=== PATIENT | female | born 1945 | race Caucasian/White ===

== ENCOUNTER 2023-11-02 10:42 | Emergency (ER) | payer MEDICARE, MEDICAID, SELFPAY ==
[2023-11-02 10:43] VITALS: BP 161/108; PULSE 91; RESP 14; TEMP 36.3; O2SAT 100; BMI 22.4
--- NOTE | 2023-11-02 11:26 | VDLE_ITS ---
Reason For Study: Right leg pain RIGHT LEFT CFV is compressible, spontaneous, phasic, CFV is compressible, spontaneous, phasic, competent and demonstrates normal competent, and demonstrates normal augmentation. augmentation. FV is compressible, spontaneous, phasic, competent and demonstrates normal augmentation. POP V is compressible, spontaneous, phasic, competent and demonstrates normal augmentation. T/P Trunk is compressible. PTV is compressible. RT PerV is compressible. Acute superficial vein thrombosis is noted in the GSV at mid-distal calf. It is NONCPMPRESSIBLE and dilated. Thrombus filled varicose vein is noted throughout leg and is 3.25 cm from the junction with CFV. It is NONCOMPRESSIBLE and dilated. Procedure This is a venous duplex using B-mode, color flow and spectral Doppler. Exam performed portable in ED. A preliminary report was called and/or faxed to [facility]. VL/Venous Duplex US, Unilateral Interpretation Summary Acute superficial vein thrombosis is noted in the right mid calf great saphenou s vein and thigh/calf varicose veins. Deep veins of the right lower extremity are patent and compressible segmentally . There is no evidence of right lower extremity deep vein thrombosis. Ordering Physician: Delisa Serrato Referring Physician: Paulie Rodriguez Performed By: Janna Cotto RVT
--- NOTE | 2023-11-02 11:43 | EX.ED.DYSGE1 ---
HPI <CECI Kennedy - Last Filed: 11/02/23 13:02> History of Present Illness Chief Complaint: Lower Extremity Injury Narrative Narrative: Pain presenting today due to concerns for a blood clot in her right leg. She reports that last week she began having pain medial aspect of her right calf and right distal thigh. A few days ago, she noticed swelling and redness to the area. She denies any history of blood clots, recent surgery/procedures/travel/immobilization. She is not on any blood thinners. She denies any injury to her leg, fevers, chills, chest pain, and shortness of breath. PFSH <CECI Kennedy - Last Filed: 11/02/23 13:02> [facility] Home Medications ferrous fumarate 55 mg (18 mg iron) tablet,extended release (iron ER) 65 mg PO DAILY 09/24/13 [History Last Taken 09/24/13 08:00] levothyroxine 25 mcg tablet 50 mcg PO DAILY 09/24/13 [History Last Taken 09/24/13 04:00] multivitamin,dp-uuev-tdlikqpl 27 mg-0.4 mg tablet (Therems-M) 1 tab PO DAILY 09/24/13 [History Last Taken 09/24/13] potassium chloride 20 mEq tablet,extended release(part/cryst) (Klor-Con M) 10 meq PO DAILY 09/24/13 [History Last Taken 09/24/13 08:00] amlodipine 2.5 mg tablet 2.5 mg PO DAILY 02/15/16 [History Last Taken Unknown] anastrozole 1 mg tablet 1 mg PO DAILY 02/15/16 [History Last Taken Unknown] Allergy/AdvReac Type Severity Reaction Status Date / Time doxycycline Allergy Swelling Verified 11/02/23 11:31 Social History Smoking Status: Never smoker ROS <CECI Kennedy - Last Filed: 11/02/23 13:02> ROS ED Constitutional Constitutional ED: Denies chills or fever(s) Cardiovascular Cardiovascular: Denies chest pain or palpitations Respiratory/Chest Respiratory/Chest: Denies cough or dyspnea Gastrointestinal Gastrointestinal: Denies abdominal pain, nausea or vomiting Musculoskeletal Musculoskeletal: Reports myalgias Integumentary Denies rash Neurologic Neurologic: Denies weakness EXAM <CECI Kennedy - Last Filed: 11/02/23 13:02> Physical Exam Const Vital Signs: 11/02/23 10:43 11/02/23 12:40 Temperature 97.3 F L 97.2 F L Temperature Source Temporal Pulse Rate 91 89 Respiratory Rate 14 16 Blood Pressure 161/108 H 157/90 H Blood Pressure Mean 125 112 Pulse Ox 100 98 Oxygen Delivery Method Room Air Positive well nourished, well developed and no apparent distress General Appearance ED: well developed HEENT Reports normocephalic and head/scalp atraumatic Mouth ED: Yes moist mucous membranes normal Eyes PERRL and EOMs intact bilaterally Neck full ROM and supple Chest Wall inspection of chest normal Resp normal respiratory effort and clear to auscultation bilaterally Cardio regular rate and regular rhythm GI soft to palpation, non-tender, non-distended and no masses Back/Spine normal ROM and normal to inspection Extremity full ROM Extremity Narrative: Right DP pulse 2+, good capillary refill, sensation intact. There is a varicose vein over the medial aspect of the mid right calf and distal medial thigh with slight erythema, area is tender to touch. Neuro oriented x3, CN's II-XII intact bilaterally, moves all extremities, no focal motor deficits and no sensory deficits noted Sensorium / Orientation: awake and alert Psych mental status grossly normal and thought process normal Skin no rashes or lesions noted and no wounds <Dr. Darnell Mathias DO - Last Filed: 11/02/23 12:39> Physical Exam Const Vital Signs: 11/02/23 10:43 11/02/23 12:40 Temperature 97.3 F L 97.2 F L Temperature Source Temporal Pulse Rate 91 89 Respiratory Rate 14 16 Blood Pressure 161/108 H 157/90 H Blood Pressure Mean 125 112 Pulse Ox 100 98 Oxygen Delivery Method Room Air MDM <CECI Kennedy - Last Filed: 11/02/23 13:02> [facility] Narrative Medical decision making narrative: Patient presenting today with concerns for DVT. She has a varicose vein to the medial aspect of her right calf and right distal thigh that has become slightly erythemic and painful to touch. Venous duplex ultrasound was obtained and shows superficial venous thrombosis. No DVT. Warm compresses discussed. I encouraged her to call her PCP today to make a follow-up appointment for the next 3 to 7 days. She has been given return instructions and will be discharged home in stable condition. She is comfortable with plan. <Dr. Darnell Mathias, DO - Last Filed: 11/02/23 12:39> [facility] Treatment and Re-Evaluation :: I have personally performed a face to face assessment of the patient and have reviewed the BYRON Note. I performed a substantive portion of the visit including all aspects of the following. My wilhelm findings include: History: Patient presents with redness and swelling to her right lower extremity that has been getting worse over the past few days. Patient states she was doing some walking prior to this starting. Patient states that she noted some redness in her right calf on the medial aspect. Patient states this has spread up her leg and into her thigh. Patient denies any fevers or chills. Patient denies any chest pain or shortness of breath. Patient denies any nausea or vomiting. Patient denies any trauma or injury. Exam: Vital signs are stable. Patient is afebrile. Patient is in no acute distress. Skin is warm and dry. There is erythema and mild tenderness over the medial aspect of the right lower leg and thigh. There is a varicose vein over this area. There are no palpable cords noted. There is no posterior calf tenderness. There is no edema. Pedal pulses are equal bilaterally. Sensation was intact to light touch in all digits. Capillary refill was less than 2 seconds in all digits. Medical Decision Making: Differential diagnosis include superficial thrombophlebitis, lymphangitis, and DVT. Venous duplex of the right lower extremity will be obtained to assess for superficial and deep vein thrombosis. Venous duplex was obtained. There is superficial thrombosis in the greater saphenous vein and common femoral vein. There is no deep vein thrombosis. The patient was advised of her findings. Patient was instructed use warm compresses. Patient was instructed to follow-up with her primary care physician in 5 to 7 days. Patient understood and was agreeable with the plan. All questions were answered. Discharge Plan Triage Chief Complaint: Lower Extremity Injury ED Midlevel Provider: Delisa Serrato ED Provider: Darnell Mathias Dx/Rx/DC Orders Clinical Impression: Superficial thrombophlebitis of leg Instructions: ED Thrombophlebitis, Superficial Prescriptions: No Action levothyroxine 25 MCG tablet 50 mcg PO DAILY Patient Comments: thyroid potassium chloride [Klor-Con M20] 20 MEQ tablet 10 meq PO DAILY Patient Comments: supplement ferrous fumarate [iron] 55 MG tablet extended release 65 mg PO DAILY Patient Comments: iron supplement multivitamin,[id number]-[id number] [Therems-M] 1 TABLET tablet 1 tab PO DAILY Patient Comments: supplement anastrozole 1 MG tablet 1 mg PO DAILY amlodipine 2.5 MG tablet 2.5 mg PO DAILY Primary Care Provider: Paulie Rodriguez Referrals: Paulie Rodriguez MD [Primary Care Provider] - 3-5 Days Activity Restrictions/Additional Instructions: Please follow-up with your PCP and return for any worsening of your symptoms. Use warm compresses to the area several times today. Disposition Disposition: Home, Self Care Discharge Date/Time: 11/02/23 12:41
[2023-11-02 12:40] VITALS: BP 157/90; PULSE 89; RESP 16; TEMP 36.2; O2SAT 98
--- OUTSIDE RECORDS SUMMARY | 2023-11-02 20:11 | XMS RPT_ITS | CCD ---
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 Automatic Name Role Phone JESSE ROJAS Unavailable Unavailable Michael FOX, Evy Brunner Primary Care Provider Michael FOX, Evy Brunner Primary Care Provider Evy Rodriguez MD Primary Care Provider Evy Rodriguez MD Primary Care Provider ALEKSANDAR GAN Attending Unavailable ALEKSANDAR GAN Referring Unavailable EVY RODRIGUEZ Primary Care Unavailable EVY RODRIGUEZ Primary Care Unavailable EVY RODRIGUEZ Attending Unavailable EVY RODRIGUEZ Primary Care Unavailable EVY RODRIGUEZ Referring Unavailable ALEKSANDAR GAN Referring Unavailable EVY RODRIGUEZ Primary Care Unavailable EVY RODRIGUEZ Primary Care Unavailable EVY RODRIGUEZ Attending Unavailable ALEKSANDAR GAN Referring Unavailable EVY RODRIGUEZ Primary Care Unavailable SELENA VIGIL Attending Unavailable SELENA VIGIL Referring Unavailable EVY RODRIGUEZ Primary Care Unavailable ANGÉLICA HINOJOSA Attending Unavailable EVY RODRIGUEZ Primary Care Unavailable ANGÉLICA HINOJOSA Attending Unavailable EVY RODRIGUEZ Primary Care Unavailable Allergies Allergy Classification Reported Allergen(s) Allergy Type Date of Onset Reaction(s) Facility (20 sources) doxycycline; Translations: [DOXYCYCLINE] Drug Allergy 5 Swelling [facility] Repository (20 sources) Seasonal allergy; Translations: [SEASONAL ALLERGIES] Propensity to adverse reactions (disorder) 1 Unknown [facility] Repository Medications Current Medications Medication Drug Class(es) Dates Sig (Normalized) Sig (Original) amLODIPine 2.5 mg oral tablet (20 sources) Dihydropyridine Calcium Channel Reece Start: 03-03-2021 End: 02-27-2024 take 1 tablet by mouth once daily amLODIPine (NORVASC) 2.5 mg tablet Indications: Essential hypertension Take 1 tablet by mouth once daily. 90 tablet 3 02/27/2023 02/27/2024 Active Completed/Discontinued Medications Medication Drug Class(es) Dates Sig (Normalized) Sig (Original) acetaminophen 325 mg oral tablet (20 sources) take 2 tablets by mouth every six hours as needed acetaminophen (TYLENOL) 325 mg tablet Take 650 mg by mouth every 6 hours as needed. 0 Active Problems Active Problems Problem Classification Problem Date Documented Date Episodic/Chronic Blindness and vision defects (2 sources) Presbyopia; Translations: [Presbyopia] Episodic Cataract (2 sources) Bilateral senile combined form cataracts of eyes; Translations: [Combined forms of age-related cataract, bilateral] Chronic Chronic kidney disease (3 sources) Chronic kidney disease stage 2; Translations: [Chronic kidney disease, stage 2 (mild)] Onset: 08-30-2023 08-30-2023 Chronic Coagulation and hemorrhagic disorders (1 source) Thrombocytopenic disorder; Translations: [Thrombocytopenia, unspecified] Chronic Disorders of lipid metabolism (20 sources) Hyperlipidemia; Translations: [Hyperlipidemia, unspecified] Onset: 05-31-2011 05-31-2011 Chronic Essential hypertension (20 sources) Essential hypertension; Translations: [Essential (primary) hypertension] Onset: 12-15-2016 Chronic Inflammation; infection of eye (except that caused by tuberculosis or sexually transmitteddisease) (1 source) Blepharitis of upper and lower eyelids of bilateral eyes; Translations: [Unspecified blepharitis right eye, upper and lower eyelids] Episodic Other eye disorders (2 sources) Bilateral posterior vitreous detachment; Translations: [Vitreous degeneration, bilateral] Chronic Other eye disorders (2 sources) Chorioretinal scar of left eye; Translations: [Unspecified chorioretinal scars, left eye] Chronic Other skin disorders (2 sources) Epidermoid cyst; Translations: [Epidermal cyst] 10-17-2023 Episodic Other upper respiratory disease (20 sources) Seasonal allergy; Translations: [Other seasonal allergic rhinitis] 05-31-2011 Chronic Residual codes; unclassified (1 source) Pain; Translations: [Pain, unspecified] Episodic Thyroid disorders (20 sources) Hypothyroidism; Translations: [Hypothyroidism, unspecified] Onset: 04-04-2011 Chronic Past or Other Problems Problem Classification Problem Date Documented Da te Episodic/Chronic Cancer of breast (20 sources) History of malignant neoplasm of breast; Translations: [Personal history of malignant neoplasm of breast] Onset: 09-20-2011 Episodic Fluid and electrolyte disorders (20 sources) Hypokalemia; Translations: [Hypokalemia] Onset: 05-20-2014 Episodic Other gastrointestinal disorders (20 sources) Dysphagia; Translations: [Dysphagia, unspecified] Onset: 01-07-2016 01-07-2016 Episodic Other non-traumatic joint disorders (1 source) Pain in left knee; Translations: [Pain in left knee] Onset: 06-12-2017 Episodic Other screening for suspected conditions (not mental disorders or infectious disease) (20 sources) Patient encounter status; Translations: [Encounter for screening mammogram for malignant neoplasm of breast] Onset: 09-07-2022 Episodic Results Test Name Value Interpretation Reference Range Facil ity Vital Signs Date Time Vital Sign Value Performing Clinician Jc baig 10-31-2023 08:56-0400 Body weight 60.96 kg Angélica Hinojosa APRN.CNM Work Phone: [facility] 10-31-2023 08:56-0400 Diastolic blood pressure 74 mm[Hg] Angélica Hinojosa APRN.CNM Work Phone: [facility] 10-31-2023 08:56-0400 Systolic blood pressure 126 mm[Hg] Angélica Hinojosa APRN.CNM Work Phone: [facility] 10-11-2023 09:48-0500 Body weight 61.69 kg Angélica Hinojosa APRN.CNM Work Phone: [facility] 10-11-2023 09:48-0500 Diastolic blood pressure 90 mm[Hg] Angélica Hinojosa APRN.CNM Work Phone: [facility] 10-11-2023 09:48-0500 Systolic blood pressure 140 mm[Hg] Angélica Hinojosa APRN.CNM Work Phone: [facility] 09-29-2023 08:38-0500 Diastolic blood pressure 96 mm[Hg] Aleksandar Gna APRN.SCRAP BREAKER Work Phone: [facility] 09-29-2023 08:38-0500 Heart rate 67 /min Aleksandar Gan PAINTING MACHINE OPERATOR.SCRAP BREAKER Work Phone: [facility] 09-29-2023 08:38-0500 Systolic blood pressure 155 mm[Hg] Aleksandar Gan PAINTING MACHINE OPERATOR.SCRAP BREAKER Work Phone: [facility] 09-29-2023 07:58-0500 Body height 160 cm Castalia Gan PAINTING MACHINE OPERATOR.SCRAP BREAKER Work Phone: [facility] 09-29-2023 07:58-0500 Body temperature 98.49 [degF] Aleksandar Mariaenter PAINTING MACHINE OPERATOR.SCRAP BREAKER Work Phone: [facility] 09-29-2023 07:58-0500 Body weight 62.14 kg Aleksandar Gan PAINTING MACHINE OPERATOR.SCRAP BREAKER Work Phone: [facility] 09-29-2023 07:58-0500 SaO2% (BldA) [Mass fraction] 99 % Aleksandar Mariaenter PAINTING MACHINE OPERATOR.SCRAP BREAKER Work Phone: [facility] 02-27-2023 10:09-0400 Diastolic blood pressure 86 mm[Hg] Evy Rodriguez MD Work Phone: [facility] 02-27-2023 10:09-0400 Systolic blood pressure 132 mm[Hg] Evy Rodriguez MD Work Phone: [facility] 02-27-2023 09:41-0400 Body height 160 cm Evy Rodriguez MD Work Phone: [facility] 02-27-2023 09:41-0400 Body weight 59.33 kg Evy Rodriguez MD Work Phone: [facility] 02-27-2023 09:41-0400 Heart rate 65 /min Evy Rodriguez MD Work Phone: [facility] 02-27-2023 09:41-0400 SaO2% (BldA) [Mass fraction] 98 % Evy Rodriguez MD Work Phone: [facility] 09-28-2022 08:18-0500 Body height 160 cm Aleksandar Mariaenter PAINTING MACHINE OPERATOR.SCRAP BREAKER Work Phone: [facility] 09-28-2022 08:18-0500 Body temperature 98.29 [degF] Castalia Gan PAINTING MACHINE OPERATOR.SCRAP BREAKER Work Phone: [facility] 09-28-2022 08:18-0500 Body weight 62.37 kg Aleksandar Mariaenter PAINTING MACHINE OPERATOR.SCRAP BREAKER Work Phone: [facility] 09-28-2022 08:18-0500 Diastolic blood pressure 81 mm[Hg] Aleksandar Gan PAINTING MACHINE OPERATOR.SCRAP BREAKER Work Phone: [facility] 09-28-2022 08:18-0500 Heart rate 64 /min Aleksandar Mariaenter PAINTING MACHINE OPERATOR.SCRAP BREAKER Work Phone: [facility] 09-28-2022 08:18-0500 Systolic blood pressure 124 mm[Hg] Aleksandar Mariaenter PAINTING MACHINE OPERATOR.SCRAP BREAKER Work Phone: [facility] 09-07-2022 10:01-0500 Body height 160 cm Evy Rodriguez MD Work Phone: [facility] 09-07-2022 10:01-0500 Body weight 61.69 kg Evy Rodriguez MD Work Phone: [facility] 09-07-2022 10:01-0500 Diastolic blood pressure 88 mm[Hg] Evy Rodriguez MD Work Phone: [facility] 09-07-2022 10:01-0500 Heart rate 70 /min Evy Rodriguez MD Work Phone: [facility] 09-07-2022 10:01-0500 SaO2% (BldA) [Mass fraction] 99 % Evy Rodriguez MD Work Phone: [facility] 09-07-2022 10:01-0500 Systolic blood pressure 134 mm[Hg] Evy Rodriguez MD Work Phone: [facility] 06-15-2022 09:34-0400 Body temperature 98.2 [degF] Niki Costa PAINTING MACHINE OPERATOR.SCRAP BREAKER Work Phone: [facility] 06-15-2022 09:34-0400 Body weight 62.6 kg Niki Costa APRN.SCRAP BREAKER Work Phone: [facility] 06-15-2022 09:34-0400 Diastolic blood pressure 80 mm[Hg] Niki Costa APRN.SCRAP BREAKER Work Phone: [facility] 06-15-2022 09:34-0400 Heart rate 80 /min Niki Costa APRN.SCRAP BREAKER Work Phone: [facility] 06-15-2022 09:34-0400 Respiratory rate 16 /min Niki Costa APRN.SCRAP BREAKER Work Phone: [facility] 06-15-2022 09:34-0400 SaO2% (BldA) [Mass fraction] 96 % Niki Costa APRN.SCRAP BREAKER Work Phone: [facility] 06-15-2022 09:34-0400 Systolic blood pressure 130 mm[Hg] Niki Costa APRN.SCRAP BREAKER Work Phone: [facility] 03-03-2022 09:39-0400 Body weight 62.6 kg Evy Rodriguez MD Work Phone: [facility] 03-03-2022 09:39-0400 Diastolic blood pressure 82 mm[Hg] Evy Rodriguez MD Work Phone: [facility] 03-03-2022 09:39-0400 Heart rate 64 /min Evy Rodriguez MD Work Phone: [facility] 03-03-2022 09:39-0400 Systolic blood pressure 138 mm[Hg] Evy Rodriguez MD Work Phone: [facility] Encounters Encounter Date Encounter Type Care Provider Facility Start: 10-31-2023 End: 10-31-2023 ambulatory [facility] Facility:[facility] Start: 10-31-2023 End: 10-31-2023 Patient encounter procedure Angélica Hinojosa APRN.CNM Work Phone: OB/Gynecology Procedures Date Procedure Procedure Detail Performing Clinician Start: 08-24-2023 Lipid 1996 panel - S kenisha or Plasma Aleksandar Gan PAINTING MACHINE OPERATOR.SCRAP BREAKER Work Phone: Start: 04-17-2023 Screening digital br east tomosynthesis bi Aleksandar Gan PAINTING MACHINE OPERATOR.SCRAP BREAKER Work Phone: Start: 09-01-2022 Lipid 1996 panel - S kenisha or Plasma Screen [facility] Start: 04-14-2022 ALO SCREENING W ILAN Da griffin MariaGan PAINTING MACHINE OPERATOR.SCRAP BREAKER Work Phone: Start: 04-14-2022 Mammography Screen Wst [facility] Start: 03-03-2022 Adult depression scr eening assessment Evy Rodriguez MD Work Phone: Start: 04-12-2021 Mammography Evy Griffith MD Work Phone: Start: 06-04-2012 Colonoscopy Evy Griffith MD Work Phone: Plan of Treatment Date Care Activity Detail Author Start: 08-24-2028 Lipid panel Lipid Screening [facility] Start: 09-01-2027 Lipid 1996 panel - S kenisha or Plasma Lipid Screening [facility] Start: 09-01-2027 LIPID SCREEN LIPID SCREEN [facility] Start: 08-27-2026 LIPID SCREEN LIPID SCREEN [facility] Start: 08-24-2026 Diabetes Screening Diabetes Screenin [facility] Start: 09-19-2025 COLOGUARD (FIT-DNA) COLOGUARD (FIT-D NA) [facility] Start: 09-19-2025 COLORECTAL CANCER SCREENING COLORECTAL CANCER SCREENING [facility] Start: 09-19-2025 Screening for malign ant neoplasm of colon [facility] Start: 09-01-2025 DIABETES SCREEN DIABETES SCREEN [facility] Start: 09-01-2025 Diabetes Screening Diabetes Screenin g [facility] Start: 10-30-2024 BP Controlled (<130/80) BP Controlle d (<130/80) [facility] Start: 08-30-2024 Annual PCP Team Pick Pulling Machine Operator shiva Disease Visit Annual PCP Team Chronic Disease Visit [facility] Start: 08-30-2024 RSV Vaccine (1 - 1-d ose 60+ series) RSV Vaccine (1 - 1-dose 60+ series) [facility] Immunizations Immunization Date Immunization Notes Care Provider Fa andre 07-24-2018 influenza virus vacc ine, unspecified formulation Screen [facility] 06-09-2016 influenza, high dose seasonal, preservative-free Evy Rodriguez MD Work Phone: [facility] 05-27-2015 influenza, high dose seasonal, preservative-free Evy Rodriguez MD Work Phone: [facility] 05-27-2015 pneumococcal conjuga te vaccine, 13 valent Evy Rodriguez MD Work Phone: [facility] 05-20-2014 influenza, high dose seasonal, preservative-free Evy Rodriguez MD Work Phone: [facility] Work Phone: 05-18-2013 influenza virus vacc ine, unspecified formulation Evy Rodriguez MD Work Phone: [facility] Work Phone: 05-18-2013 pneumococcal polysaccharide vaccine, 23 valent Evy Rodriguez MD Work Phone: [facility] Work Phone: 05-23-2012 influenza virus vacc ine, unspecified formulation Evy Rodriguez MD Work Phone: [facility] 04-21-2007 tetanus and diphther ia toxoids, adsorbed, preservative free, for adult use (2 Lf of tetanus toxoid and 2 Lf of diphtheria toxoid) Evy Rodriguez MD Work Phone: [facility] Work Phone: Payers Date Payer Category Payer Medicaid [employer] [id number] 2018-Present [phone] [address] [place] [address] Medicaid [id number] 2018 Medicare [id number] 2018 Medicare [employer] [id number] 2018-Present [phone] [address] [place] [address] Medicare [id number] 2018 Medicare [id number] Social History Date Type Detail Facility Start: 03-11-2011 End: 06-15-2022 Tobacco smoking status NHIS Never smoked tobacco [facility] Work Phone: Start: 03-11-2011 End: 06-15-2022 Tobacco use and exposure Smokeless tobacco non-user [facility] Work Phone: Start: 03-03-2022 End: 10-31-2023 Alcohol intake Current drinker of alcohol (finding) [facility] Start: 04-18-2017 History SDOH Alcohol Comment rare [facility] Start: 04-02-2013 End: 06-15-2022 Tobacco Comment smoked for many years. [facility] Start: 1945 Sex Assigned At Not on file [facility] Start: 02-21-2022 End: 06-15-2022 Exposure to SARS-CoV-2 (event) Not sure [facility] Start: 02-27-2023 End: 08-30-2023 History of Social function [facility] Work Phone: Start: 02-27-2023 End: 08-30-2023 Tobacco use panel [facility] Work Phone: Adult Depression Screening Assessment 0 [facility] Work Phone: Medical Equipment Procedure Code Equipment Code Equipment Origin al Text Equipment Identifier Dates Roberto Bn Endur Sst 40gm Med Vsc - [id number] Start: 05-02-2011 Comp Fem 2.5 Lt Kn Ps Pfc Sig - [id number] Start: 05-02-2011 Comp Tibtry 2.5 Kn Roberto Mdlr - [id number] Start: 05-02-2011 Ins Tib 2.5 10mm Stab Xlnkd - [id number] Start: 05-02-2011 Dome Pat 35mm Pf c Sig Sm Kn - [id number] Start: 05-02-2011 Goals Date Patient Goal Desired Activity /State Personal health goal Clinical Notes 12-15-2016 to 10-31-2023 Angélica Hinojosa APRN.CHRISTIANO - 10/31/2023 8:54 AM Angélica Castro APRN.CNM - 10/17/2023 11:00 PM Angélica Campo APRN.CNM - 10/11/2023 9:42 AM Aleksandar Booth APRN.SCRAP BREAKER - 09/29/2023 7:50 AM EST Note Date & Type Note Facility 10-31-2023 Note HNO ID: [id number] Author: ANGÉLICA HINOJOSA APRN.CNM Service: ? Author Type: Logistics Team Lead Type: Progress Notes Filed: 10/31/2023 09:32 Note Text: Tenzin Lockhart is a 77 year old female who presents for problem visit follow up labial cyst HPI: Patient presents today for follow up labial cyst IANDD. Denies any concerns. Healed without incidence and does not feel it any further. 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 Comments: Sexual Activity: Never; No partner data on record Contraception: Tubal Ligation PAST MEDICAL HISTORY Diagnosis Date Anemia Anxiety AVN (avascular necrosis of bone) (HCC) 2010 left knee, femur Breast cancer (HCC) Esophageal stricture S/P dilatation Hyperlipidemia Hypertension Hypothyroidism Prolapsed uterus Seasonal allergies PAST SURGICAL HISTORY Procedure Laterality Date ARTHRP KNE CONDYLEANDPLATU MEDIALANDLAT COMPARTMENTS 04/2011 left osteonecrosis BX BREAST PERC VACUUM/ROTN 09/08/11 Right x 2 COLONOSCOPY 06/04/12 repeat due 2021 ESOPHAGOGASTRODUODENOSCOPY TRANSORAL DIAGNOSTIC 01/07/16 EGD ESOPHAGOGASTRODUODENOSCOPY TRANSORAL DIAGNOSTIC 02/16/2016 EGD-MAC ([facility]) HYSTERECTOMY HX 09/27/12 FAUSTO/BSO, prolapse LIG/TRNSXJ FLP TUBE ABDL/VAG APPR UNI/BI 1977 Tubal ligation MASTECTOMY, PARTIAL 10/19/11 SLNBx - Negative PAST SURGICAL HISTORY OF removal of all upper teeth, has plate FAMILY HISTORY Problem Relation Age of Onset Thyroid Mother other (brain tumor) Mother benign Cancer Father stomach Diabetes Maternal Grandmother Thyroid Brother Thyroid Sister hyperthyroidism Cancer Other niece-breast Social History Tobacco Use Smoking status: Never Smokeless tobacco: Never Tobacco comments: smoked for many years. Vaping Use Vaping Use: Never used Substance Use Topics Alcohol use: Yes Comment: rare Drug use: No Current Outpatient Medications Medication Sig levothyroxine (SYNTHROID) 75 mcg tablet Take 1 tablet by mouth once daily. Take on empty stomach. For Thyroid amLODIPine (NORVASC) 2.5 mg tablet Take 1 tablet by mouth once daily. ascorbic acid, vitamin C, (VITAMIN C) 500 mg tablet Take 500 mg by mouth once daily. Cholecalciferol, Vitamin D3, 25 mcg (1,000 unit) cap Take 2,000 Units by mouth once daily. FOLIC ACID/MULTIVIT-MIN/LUTEIN (CENTRUM SILVER ORAL) Take 1 tablet by mouth once daily. Cyanocobalamin 1,000 mcg subl Dissolve 1,000 mcg under the tongue once daily. CALCIUM CITRATE/VITAMIN D2 (CALCIUM CITRATE WITH D ORAL) Take 500 mg by mouth once daily. acetaminophen (TYLENOL) 325 mg tablet Take 650 mg by mouth every 6 hours as needed. ferrous sulfate 325 mg (65 mg iron) tablet Take 325 mg by mouth daily with breakfast. No current facility-administered medications for this visit. Allergies As of Date: 10/31/2023 Allergen Noted Reaction DOXYCYCLINE 07/13/2015 Swelling SEASONAL ALLERGIES 05/02/2011 Unknown Fully Assessed 10/31/2023 REVIEW OF SYSTEMS Abdomen: No bloating, early satiety, indigestion, or increased flatulence. No abdominal pain, nausea, vomiting, diarrhea, or constipation. Bladder: No dysuria, gross hematuria, urinary frequency, urinary urgency, or incontinence. Expanded ROS: N/A Allergies and current medication updated:Yes EXAM: BP 126/74 Wt 134 lb 6.4 oz (61.0kg) GENERAL: pleasant, female in no apparent distress HEENT: Normocephalic and atraumatic NECK: Supple and full range of motion CHEST: Normal inspiratory effort PELVIC: external genitalia normal, normal Bartholin's glands, urethra, [place]'s glands, no vulvar lesions, no cervical lesions, good vaginal support, physiologic discharge present, normal appearing perineal body and perianal region NEURO: alert and oriented x3,exam grossly non-focal EXTREMITIES: normal ASSESSMENT AND PLAN: 1. Epidermoid cyst - ICD9: 706.2, ICD10: L72.0 -Resolution of cyst and no further concerns. Follow up for annual exam is desires. PCP for care. Angélica Hinojosa APRN.ANTIONETTE [facility] 10-31-2023 History of Present illness Narrative Tenzin Lockhart is a 77 year old female who presents for problem visit follow up labial cyst HPI: Patient presents today for follow up labial cyst I&D. Denies any concerns. Healed without incidence and does not feel it any further. 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 Comments: Sexual Activity: Never; No partner data on record Contraception: Tubal Ligation PAST MEDICAL HISTORY Diagnosis Date Anemia Anxiety AVN (avascular necrosis of bone) (HCC) 2010 left knee, femur Breast cancer (HCC) Esophageal stricture S/P dilatation Hyperlipidemia Hypertension Hypothyroidism Prolapsed uterus Seasonal allergies PAST SURGICAL HISTORY Procedure Laterality Date ARTHRP KNE CONDYLE&PLATU MEDIAL&LAT COMPARTMENTS 04/2011 left osteonecrosis BX BREAST PERC VACUUM/ROTN 09/08/11 Right x 2 COLONOSCOPY 06/04/12 repeat due 2021 ESOPHAGOGASTRODUODENOSCOPY TRANSORAL DIAGNOSTIC 01/07/16 EGD ESOPHAGOGASTRODUODENOSCOPY TRANSORAL DIAGNOSTIC 02/16/2016 EGD-MAC ([facility]) HYSTERECTOMY HX 09/27/12 FAUSTO/BSO, prolapse LIG/TRNSXJ FLP TUBE ABDL/VAG APPR UNI/1977 Tubal ligation MASTECTOMY, PARTIAL 10/19/11 SLNBx - Negative PAST SURGICAL HISTORY OF removal of all upper teeth, has plate FAMILY HISTORY Problem Relation Age of Onset Thyroid Mother other (brain tumor) Mother benign Cancer Father stomach Diabetes Maternal Grandmother Thyroid Brother Thyroid Sister hyperthyroidism Cancer Other niece-breast Social History Tobacco Use Smoking status: Never Smokeless tobacco: Never Tobacco comments: smoked for many years. Vaping Use Vaping Use: Never used Substance Use Topics Alcohol use: Yes Comment: rare Drug use: No Current Outpatient Medications Medication Sig levothyroxine (SYNTHROID) 75 mcg tablet Take 1 tablet by mouth once daily. Take on empty stomach. For Thyroid amLODIPine (NORVASC) 2.5 mg tablet Take 1 tablet by mouth once daily. ascorbic acid, vitamin C, (VITAMIN C) 500 mg tablet Take 500 mg by mouth once daily. Cholecalciferol, Vitamin D3, 25 mcg (1,000 unit) cap Take 2,000 Units by mouth once daily. FOLIC ACID/MULTIVIT-MIN/LUTEIN (CENTRUM SILVER ORAL) Take 1 tablet by mouth once daily. Cyanocobalamin 1,000 mcg subl Dissolve 1,000 mcg under the tongue once daily. CALCIUM CITRATE/VITAMIN D2 (CALCIUM CITRATE WITH D ORAL) Take 500 mg by mouth once daily. acetaminophen (TYLENOL) 325 mg tablet Take 650 mg by mouth every 6 hours as needed. ferrous sulfate 325 mg (65 mg iron) tablet Take 325 mg by mouth daily with breakfast. No current facility-administered medications for this visit. Allergies As of Date: 10/31/2023 Allergen Noted Reaction DOXYCYCLINE 07/13/2015 Swelling SEASONAL ALLERGIES 05/02/2011 Unknown Fully Assessed 10/31/2023 REVIEW OF SYSTEMS Abdomen: No bloating, early satiety, indigestion, or increased flatulence. No abdominal pain, nausea, vomiting, diarrhea, or constipation. Bladder: No dysuria, gross hematuria, urinary frequency, urinary urgency, or incontinence. Expanded ROS: N/A Allergies and current medication updated:Yes EXAM: BP 126/74 Wt 134 lb 6.4 oz (61.0kg) GENERAL: pleasant, female in no apparent distress HEENT: Normocephalic and atraumatic NECK: Supple and full range of motion CHEST: Normal inspiratory effort PELVIC: external genitalia normal, normal Bartholin's glands, urethra, [place]'s glands, no vulvar lesions, no cervical lesions, good vaginal support, physiologic discharge present, normal appearing perineal body and perianal region NEURO: alert and oriented x3,exam grossly non-focal EXTREMITIES: normal ASSESSMENT AND PLAN: 1. Epidermoid cyst - ICD9: 706.2, ICD10: L72.0 -Resolution of cyst and no further concerns. Follow up for annual exam is desires. PCP for care. Angélica Hinojosa APRN.CNM documented in this encounter [facility] 10-18-2023 Note HNO ID: [id number] Author: ANGÉLICA HINOJOSA APRN.CNM Service: ? Author Type: Logistics Team Lead Type: Progress Notes Filed: 10/17/2023 23:06 Note Text: Tenzin Lockhart is a 77 year old female who presents today for a vulvar epidermoid cyst UNIVERSAL PROTOCOL / SAFETY CHECKLIST Procedure to be Performed: simple incision and drainage Sign In: A Moment of CARE was completed. Personnel directly involved with the procedure wore the appropriate PPE (Personal Protective Equipment). No special equipment needed. Patient/Surrogate Stated/Verified: PATIENT VERIFIED(optional for EMERGENT procedures): Patient name, Date of , Relevant allergies, and The intended procedure Time Out Communication: Intended patient and procedure match the source documents. Consent documented and matches the intended procedure. No relevant labs, photos, and/or imaging studies were applicable for review. Correct side/site marked and visible. Medications required for procedure verified. No fire risk assessment and interventions applicable. No implant(s) inserted. Sign Out: SIGN OUT (optional for EMERGENT procedures): No specimen collected. All instruments, equipment, possible retained foreign bodies accounted for. Post-procedure follow-up management communicated and Plan of Care Visit completed when applicable. Angélica Hinojosa APRN.CNM PROCEDURE NOTE: Area was cleansed with betadine and anesthetized with 2mL 1% lidocaine with 1:100,000 epi. Incision into cyst and thick yellow discharge removed. Tolerated well HEMOSTASIS: Obtained with pressure Procedure Summary: Patient tolerated procedure well. ASSESSMENT/PLAN: 1. Epidermoid cyst - ICD9: 706.2, ICD10: L72.0 - postprocedure information reviewed. Follow up in 1-2 weeks Angélica Hinojosa APRN.CNM [facility] 10-17-2023 History of Present illness Narrative Tenzin Lockhart is a 77 year old female who presents today for a vulvar epidermoid cyst UNIVERSAL PROTOCOL / SAFETY CHECKLIST Procedure to be Performed: simple incision and drainage Sign In: A Moment of CARE was completed. Personnel directly involved with the procedure wore the appropriate PPE (Personal Protective Equipment). No special equipment needed. Patient/Surrogate Stated/Verified: PATIENT VERIFIED(optional for EMERGENT procedures): Patient name, Date of , Relevant allergies, and The intended procedure Time Out Communication: Intended patient and procedure match the source documents. Consent documented and matches the intended procedure. No relevant labs, photos, and/or imaging studies were applicable for review. Correct side/site marked and visible. Medications required for procedure verified. No fire risk assessment and interventions applicable. No implant(s) inserted. Sign Out: SIGN OUT (optional for EMERGENT procedures): No specimen collected. All instruments, equipment, possible retained foreign bodies accounted for. Post-procedure follow-up management communicated and Plan of Care Visit completed when applicable. Angélica Hinojosa APRN.CNM PROCEDURE NOTE: Area was cleansed with betadine and anesthetized with 2mL 1% lidocaine with 1:100,000 epi. Incision into cyst and thick yellow discharge removed. Tolerated well HEMOSTASIS: Obtained with pressure Procedure Summary: Patient tolerated procedure well. ASSESSMENT/PLAN: 1. Epidermoid cyst - ICD9: 706.2, ICD10: L72.0 - postprocedure information reviewed. Follow up in 1-2 weeks Angélica Hinojosa APRN.CNM Nursing Service Administrator offered: Patient declines. Tenzin Lockhart is a 77 year old female who presents for problem visit a nodule on left labia. Developed approximately 1 year ago, noticed after some heavy lifting, It cuts along underwear line, is annoying. Not really painful. Just want to check it out. 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: Sexual Activity: Never; No partner data on record Contraception: Tubal Ligation PAST MEDICAL HISTORY Diagnosis Date Anemia Anxiety AVN (avascular necrosis of bone) (HCC) 2010 left knee, femur Breast cancer (HCC) Esophageal stricture S/P dilatation Hyperlipidemia Hypertension Hypothyroidism Prolapsed uterus Seasonal allergies PAST SURGICAL HISTORY Procedure Laterality Date ARTHRP KNE CONDYLE&PLATU MEDIAL&LAT COMPARTMENTS 04/2011 left osteonecrosis BX BREAST PERC VACUUM/ROTN 09/08/11 Right x 2 COLONOSCOPY 06/04/12 repeat due 2021 ESOPHAGOGASTRODUODENOSCOPY TRANSORAL DIAGNOSTIC 01/07/16 EGD ESOPHAGOGASTRODUODENOSCOPY TRANSORAL DIAGNOSTIC 02/16/2016 EGD-MAC ([facility]) HYSTERECTOMY HX 09/27/12 FAUSTO/BSO, prolapse LIG/TRNSXJ FLP TUBE ABDL/VAG APPR UNI/BI 1977 Tubal ligation MASTECTOMY, PARTIAL 2/29/12 SLNBx - Negative PAST SURGICAL HISTORY OF removal of all upper teeth, has plate FAMILY HISTORY Problem Relation Age of Onset Thyroid Mother other (brain tumor) Mother benign Cancer Father stomach Diabetes Maternal Grandmother Thyroid Brother Thyroid Sister hyperthyroidism Cancer Other niece-breast Social History Tobacco Use Smoking status: Never Smokeless tobacco: Never Tobacco comments: smoked for many years. Vaping Use Vaping Use: Never used Substance Use Topics Alcohol use: Yes Comment: rare Drug use: No Current Outpatient Medications Medication Sig levothyroxine (SYNTHROID) 75 mcg tablet Take 1 tablet by mouth once daily. Take on empty stomach. For Thyroid amLODIPine (NORVASC) 2.5 mg tablet Take 1 tablet by mouth once daily. ascorbic acid, vitamin C, (VITAMIN C) 500 mg tablet Take 500 mg by mouth once daily. Cholecalciferol, Vitamin D3, 25 mcg (1,000 unit) cap Take 2,000 Units by mouth once daily. FOLIC ACID/MULTIVIT-MIN/LUTEIN (CENTRUM SILVER ORAL) Take 1 tablet by mouth once daily. Cyanocobalamin 1,000 mcg subl Dissolve 1,000 mcg under the tongue once daily. CALCIUM CITRATE/VITAMIN D2 (CALCIUM CITRATE WITH D ORAL) Take 500 mg by mouth once daily. acetaminophen (TYLENOL) 325 mg tablet Take 650 mg by mouth every 6 hours as needed. ferrous sulfate 325 mg (65 mg iron) tablet Take 325 mg by mouth daily with breakfast. No current facility-administered medications for this visit. Allergies As of Date: 10/11/2023 Allergen Noted Reaction DOXYCYCLINE 07/13/2015 Swelling SEASONAL ALLERGIES 05/02/2011 Unknown Fully Assessed 09/29/2023 REVIEW OF SYSTEMS Abdomen: No bloating, early satiety, indigestion, or increased flatulence. No abdominal pain, nausea, vomiting, diarrhea, or constipation. Bladder: No dysuria, gross hematuria, urinary frequency, urinary urgency, or incontinence. Breast: No breast lumps, nipple d/c, overlying skin changes, redness or skin retraction. Expanded ROS: N/A Allergies and current medication updated:Yes EXAM: BP 140/90 Wt 136 lb (61.7 kg) BMI 24.09 kg/m GENERAL: pleasant, female in no apparent distress CHEST: Normal inspiratory effort PELVIC: external genitalia normal, normal Bartholin's glands, urethra, [place]'s glands, normal appearing perineal body and perianal region, vulvar lesion on left outer labia majora. Inclu NEURO: alert and oriented x3,exam grossly non-focal EXTREMITIES: normal ASSESSMENT AND PLAN: Angélica Hinojosa APRN.CNM documented in this encounter [facility] 10-11-2023 Note HNO ID: [id number] Author: ANGÉLICA HINOJOSA APRN.CNM Service: ? Author Type: Logistics Team Lead Type: Progress Notes Filed: 10/17/2023 23:06 Note Text: Nursing Service Administrator offered: Patient declines. Tenzin Lockhart is a 77 year old female who presents for problem visit a nodule on left labia. Developed approximately 1 year ago, noticed after some heavy lifting, It cuts along underwear line, is annoying. Not really painful. Just want to check it out. 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: Sexual Activity: Never; No partner data on record Contraception: Tubal Ligation PAST MEDICAL HISTORY Diagnosis Date Anemia Anxiety AVN (avascular necrosis of bone) (HCC) 2010 left knee, femur Breast cancer (HCC) Esophageal stricture S/P dilatation Hyperlipidemia Hypertension Hypothyroidism Prolapsed uterus Seasonal allergies PAST SURGICAL HISTORY Procedure Laterality Date ARTHRP KNE CONDYLEANDPLATU MEDIALANDLAT COMPARTMENTS 04/2011 left osteonecrosis BX BREAST PERC VACUUM/ROTN 09/08/11 Right x 2 COLONOSCOPY 06/04/12 repeat due 2021 ESOPHAGOGASTRODUODENOSCOPY TRANSORAL DIAGNOSTIC 01/07/16 EGD ESOPHAGOGASTRODUODENOSCOPY TRANSORAL DIAGNOSTIC 02/16/2016 EGD-MAC ([facility]) HYSTERECTOMY HX 09/27/12 FAUSTO/BSO, prolapse LIG/TRNSXJ FLP TUBE ABDL/VAG APPR UNI/BI 1977 Tubal ligation MASTECTOMY, PARTIAL 10/19/11 SLNBx - Negative PAST SURGICAL HISTORY OF removal of all upper teeth, has plate FAMILY HISTORY Problem Relation Age of Onset Thyroid Mother other (brain tumor) Mother benign Cancer Father stomach Diabetes Maternal Grandmother Thyroid Brother Thyroid Sister hyperthyroidism Cancer Other niece-breast Social History Tobacco Use Smoking status: Never Smokeless tobacco: Never Tobacco comments: smoked for many years. Vaping Use Vaping Use: Never used Substance Use Topics Alcohol use: Yes Comment: rare Drug use: No Current Outpatient Medications Medication Sig levothyroxine (SYNTHROID) 75 mcg tablet Take 1 tablet by mouth once daily. Take on empty stomach. For Thyroid amLODIPine (NORVASC) 2.5 mg tablet Take 1 tablet by mouth once daily. ascorbic acid, vitamin C, (VITAMIN C) 500 mg tablet Take 500 mg by mouth once daily. Cholecalciferol, Vitamin D3, 25 mcg (1,000 unit) cap Take 2,000 Units by mouth once daily. FOLIC ACID/MULTIVIT-MIN/LUTEIN (CENTRUM SILVER ORAL) Take 1 tablet by mouth once daily. Cyanocobalamin 1,000 mcg subl Dissolve 1,000 mcg under the tongue once daily. CALCIUM CITRATE/VITAMIN D2 (CALCIUM CITRATE WITH D ORAL) Take 500 mg by mouth once daily. acetaminophen (TYLENOL) 325 mg tablet Take 650 mg by mouth every 6 hours as needed. ferrous sulfate 325 mg (65 mg iron) tablet Take 325 mg by mouth daily with breakfast. No current facility-administered medications for this visit. Allergies As of Date: 10/11/2023 Allergen Noted Reaction DOXYCYCLINE 07/13/2015 Swelling SEASONAL ALLERGIES 05/02/2011 Unknown Fully Assessed 09/29/2023 REVIEW OF SYSTEMS Abdomen: No bloating, early satiety, indigestion, or increased flatulence. No abdominal pain, nausea, vomiting, diarrhea, or constipation. Bladder: No dysuria, gross hematuria, urinary frequency, urinary urgency, or incontinence. Breast: No breast lumps, nipple d/c, overlying skin changes, redness or skin retraction. Expanded ROS: N/A Allergies and current medication updated:Yes EXAM: BP 140/90 Wt 136 lb (61.7 kg) BMI 24.09 kg/m? GENERAL: pleasant, female in no apparent distress CHEST: Normal inspiratory effort PELVIC: external genitalia normal, normal [place]th[place]'s glands, urethra, [place]'s glands, normal appearing perineal body and perianal region, vulvar lesion on left outer labia majora. Inclu NEURO: alert and oriented x3,exam grossly non-focal EXTREMITIES: normal ASSESSMENT AND PLAN: Angélica Hinojosa APRN.ANTIONETTE [facility] 09-29-2023 Note HNO ID: [id number] Author: ALEKSANDAR GAN APRN.ROSEMARIE Service: ? Author Type: Nurse Practitioner Type: Progress Notes Filed: 09/29/2023 08:24 Note Text: Chief Complaint Patient presents with: Established Patient HPI: Tenzin Lockhart is a 77 year old female who presents here today for follow up breast cancer. Per Dr. Marquis's previous note: H/o screening mammogram (first in about 8-9 years) and was found to have an abnormality in the right breast. Subsequent right breast diagnostic mammogram revealed two groupings of calcifications in the right breast, 1 grouping consisting of pleomorphic microcalcifications the other of calcifications associated with an irregular nodule. She then underwent a bilateral breast MRI on 09/15/11. That study revealed a 2.3 cm spiculated abnormal enhancing mass in the upper outer quadrant of the right breast 7 cm posterior to the nipple. There was no axillary adenopathy noted. There were no areas of abnormal enhancement in the left breast. The patient had undergone a biopsy on 09/09/11. The tissue pathology was positive for invasive ductal carcinoma. 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 Estrogen and progesterone receptors were both positive at 98%. HER-2 was quantified at 0-1+. The patient subsequently underwent breast conserving surgery consisting of partial mastectomy and sentinel lymph node sampling procedure on 10/19/11. The final pathology revealed 2 foci of carcinoma in the specimen. One measured 2.2 cm in greatest dimension and 1 was 2.5 mm in greatest dimension. Margins were negative. The closest was the posterior margin 1.5 cm. Angiolymphatic invasion was not identified. The overall grade was 2. Completed Docetaxel 75 mg/m2 and cyclophosphamide 600 mg/m2 day 1, every 3 weeks for a total of 4 cycles. Completed radiation on 04/18/12. Started arimidex afterward. Completed therapy. Pt. had a hystr/bso 09/2012. No new concerns today. Appetite: It's fine. Wt. stable. Energy level: Good. Denies fevers or recent illness. Resp:denies cough or sob Cardiac:denies chest pain/palpitations GI:denies abd pain, n/v, moving bowels regularly :denies dysuria/hematuria Endo:denies hot flashes Extrem:denies pain, +arthritis to fingers Neuro:occ.tingling to finger tips R>L Skin:denies rashes/lesions Heme:denies bleeding The ROS is otherwise negative. Past medical history, appointments, medications, allergies reviewed. No changes. EXAM: BP 154/99 Pulse 67 Temp 36.9 ?C (98.5 ?F) (Temporal) Ht 160 cm (5' 3 ) Wt 62.1 kg (137 lb) SpO2 99% BMI 24.27 kg/m? APPEARANCE Well appearing, alert, in no acute distress, well-hydrated, well nourished. HEART RRR with normal S1 and S2, no murmurs LUNG clear to auscultation BREAST FEMALE no mass/nodule b/l, R radiation changes LYMPH NODES No cervical lymphadenopathy, No supraclavicular lymphadenopathy, and No axillary lymphadenopathy. ABDOMEN bowel sounds normoactive, soft, non-tender EXTREMITIES No edema NEURO Awake, alert and oriented x 3, Normal gait, and No involuntary motions. SKIN L labia pea sized nodule ASSESSMENT/PLAN: 1. 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 - Pea sized nodule to L labia. - Pt. completed 5 years of arimidex. We previously discussed continuing on femara for another 5 years. Pt. declined d/t her hand/joint aches/pains/stiffness. - Please schedule appt. with CONCIERGE MANAGER to eval labia nodule. - Mammogram due March 2024. - Follow up in one year-pending above. - Pt. aware to call office with any questions/concerns. The patient indicates understanding of these issues and agrees with the plan. All documentation from previous visit of 09/28/31-Dr. Marquis/myself was copied and pasted, documentation has been reviewed and edited as necessary for today's visit. Aleksandar Gan APRN.[facility] 09-29-2023 History of Present illness Narrative Chief Complaint Patient presents with: Established Patient HPI: Tenzin Lockhart is a 77 year old female who presents here today for follow up breast cancer. Per Dr. Marquis's previous note: H/o screening mammogram (first in about 8-9 years) and was found to have an abnormality in the right breast. Subsequent right breast diagnostic mammogram revealed two groupings of calcifications in the right breast, 1 grouping consisting of pleomorphic microcalcifications the other of calcifications associated with an irregular nodule. She then underwent a bilateral breast MRI on 09/15/11. That study revealed a 2.3 cm spiculated abnormal enhancing mass in the upper outer quadrant of the right breast 7 cm posterior to the nipple. There was no axillary adenopathy noted. There were no areas of abnormal enhancement in the left breast. The patient had undergone a biopsy on 09/09/11. The tissue pathology was positive for invasive ductal carcinoma. 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 Estrogen and progesterone receptors were both positive at 98%. HER-2 was quantified at 0-1+. The patient subsequently underwent breast conserving surgery consisting of partial mastectomy and sentinel lymph node sampling procedure on 10/19/11. The final pathology revealed 2 foci of carcinoma in the specimen. One measured 2.2 cm in greatest dimension and 1 was 2.5 mm in greatest dimension. Margins were negative. The closest was the posterior margin 1.5 cm. Angiolymphatic invasion was not identified. The overall grade was 2. Completed Docetaxel 75 mg/m2 and cyclophosphamide 600 mg/m2 day 1, every 3 weeks for a total of 4 cycles. Completed radiation on 04/18/12. Started arimidex afterward. Completed therapy. Pt. had a hystr/bso 09/2012. No new concerns today. Appetite: It's fine. Wt. stable. Energy level: Good. Denies fevers or recent illness. Resp:denies cough or sob Cardiac:denies chest pain/palpitations GI:denies abd pain, n/v, moving bowels regularly :denies dysuria/hematuria Endo:denies hot flashes Extrem:denies pain, +arthritis to fingers Neuro:occ.tingling to finger tips R>L Skin:denies rashes/lesions Heme:denies bleeding The ROS is otherwise negative. Past medical history, appointments, medications, allergies reviewed. No changes. EXAM: BP 154/99 Pulse 67 Temp 36.9 C (98.5 F) (Temporal) Ht 160 cm (5' 3 ) Wt 62.1 kg (137 lb) SpO2 99% BMI 24.27 kg/m APPEARANCE Well appearing, alert, in no acute distress, well-hydrated, well nourished. HEART RRR with normal S1 and S2, no murmurs LUNG clear to auscultation BREAST FEMALE no mass/nodule b/l, R radiation changes LYMPH NODES No cervical lymphadenopathy, No supraclavicular lymphadenopathy, and No axillary lymphadenopathy. ABDOMEN bowel sounds normoactive, soft, non-tender EXTREMITIES No edema NEURO Awake, alert and oriented x 3, Normal gait, and No involuntary motions. SKIN L labia pea sized nodule ASSESSMENT/PLAN: 1. 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 - Pea sized nodule to L labia. - Pt. completed 5 years of arimidex. We previously discussed continuing on femara for another 5 years. Pt. declined d/t her hand/joint aches/pains/stiffness. - Please schedule appt. with CONCIERGE MANAGER to eval labia nodule. - Mammogram due March 2024. - Follow up in one year-pending above. - Pt. aware to call office with any questions/concerns. The patient indicates understanding of these issues and agrees with the plan. All documentation from previous visit of 09/28/31-Dr. Marquis/myself was copied and pasted, documentation has been reviewed and edited as necessary for today's visit. Aleksandar Gan APRN.ROSEMARIE documented in this encounter [facility] 08-30-2023 Note HNO ID: [id number] Author: EVY RODRIGUEZ MD Service: ? Author Type: Physician Type: Progress Notes Filed: 08/30/2023 10:12 Note Text: Patient presents with: 6 Month Exam HPI: Patient presents today for office visit for six months HTN: Patient is compliant with meds Yes Monitors bp at home: yes. Validated monitor from home. Readings 114/85 P 75 @ home Denies side effects: Yes. Chest pain: No. Dyspnea: No. Edema: No. Palpitations: No. Syncope: No. Headache: No. Dizziness: No. HYPOTHYROID: Patient is compliant with medications: Yes Patient has changes in energy: No Patient has changes in hair or skin: No Patient has temperature intolerance: No Patient has weight changes: No Has followed with oncology for her breast cancer. Discussed cholesterol. Wants to watch diet. The 10-year ASCVD risk score (Lorie BUCK, et al., 2019) is: 21.8% Values used to calculate the score: Age: 77 years Sex: Female Is Non- : No Diabetic: No Tobacco smoker: No Systolic Blood Pressure: 130 mmHg Is BP treated: Yes HDL Cholesterol: 49 mg/dL Total Cholesterol: 217 mg/dL Component Latest Ref Rng AND Units 08/24/2023 WBC 3.70 - 11.00 k/uL 4.17 RBC 3.90 - 5.20 m/uL 4.59 Hemoglobin 11.5 - 15.5 g/dL 13.7 Hematocrit 36.0 - 46.0 % 41.5 MCV 80.0 - 100.0 fL 90.4 MCH 26.0 - 34.0 pg 29.8 MCHC 30.5 - 36.0 g/dL 33.0 RDW-CV 11.5 - 15.0 % 13.2 Platelet Count 150 - 400 k/uL 201 MPV 9.0 - 12.7 fL 9.3 Neut% % 61.0 Abs Neut (ANC) 1.45 - 7.50 k/uL 2.54 Lymph% % 24.2 Abs Lymph 1.00 - 4.00 k/uL 1.01 Bowie% % 10.1 Abs Bowie <0.87 k/uL 0.42 Eosin% % 3.8 Abs Eosin <0.46 k/uL 0.16 Baso% % 0.7 Abs Baso <0.11 k/uL 0.03 Immature Gran % % 0.2 IMMATURE GRANS (ABS) <0.10 k/uL <0.03 NRBC /100 WBC 0.0 Absolute nRBC <0.01 k/uL <0.01 DTYPE Auto Protein, Total 6.3 - 8.0 g/dL 6.4 Albumin 3.9 - 4.9 g/dL 4.2 Calcium 8.5 - 10.2 mg/dL 9.4 Bilirubin, Total 0.2 - 1.3 mg/dL 0.5 Alkaline Phosphatase 34 - 123 U/L 81 AST 13 - 35 U/L 25 ALT 7 - 38 U/L 17 Glucose 74 - 99 mg/dL 95 BUN 7 - 21 mg/dL 15 Creatinine 0.58 - 0.96 mg/dL 0.98 (H) Sodium 136 - 144 mmol/L 139 Potassium 3.7 - 5.1 mmol/L 3.9 Chloride 97 - 105 mmol/L 105 CO2 22 - 30 mmol/L 27 Anion Gap 9 - 18 mmol/L 7 (L) eGFR >=60 mL/min/1.73mA? 60 Cholesterol, Total <200 mg/dL 217 (H) Triglyceride <150 mg/dL 142 HDL Cholesterol >39 mg/dL 49 Non HDL Cholesterol <130 mg/dL 168 (H) Fasting Time hrs 12 VLDL Cholesterol <30 mg/dL 28 TC:HDL Ratio <5.10 4.43 LDL Cholesterol <100 mg/dL 140 (H) LDL:HDL Ratio <2.54 2.86 (H) TSH 0.270 - 4.200 mIU/L 1.730 MEDICATIONS: Current Outpatient Medications Medication Sig levothyroxine (SYNTHROID) 75 mcg tablet Take 1 tablet by mouth once daily. Take on empty stomach. For Thyroid amLODIPine (NORVASC) 2.5 mg tablet Take 1 tablet by mouth once daily. ascorbic acid, vitamin C, (VITAMIN C) 500 mg tablet Take 500 mg by mouth once daily. Cholecalciferol, Vitamin D3, 25 mcg (1,000 unit) cap Take 2,000 Units by mouth once daily. FOLIC ACID/MULTIVIT-MIN/LUTEIN (CENTRUM SILVER ORAL) Take 1 tablet by mouth once daily. Cyanocobalamin 1,000 mcg subl Dissolve 1,000 mcg under the tongue once daily. CALCIUM CITRATE/VITAMIN D2 (CALCIUM CITRATE WITH D ORAL) Take 500 mg by mouth once daily. acetaminophen (TYLENOL) 325 mg tablet Take 650 mg by mouth every 6 hours as needed. ferrous sulfate 325 mg (65 mg iron) tablet Take 325 mg by mouth daily with breakfast. No current facility-administered medications for this visit. ALLERGIES: ALLERGIES Allergen Reactions Doxycycline Swelling Seasonal Allergies Unknown PAST MEDICAL HISTORY Diagnosis Date Anemia Anxiety AVN (avascular necrosis of bone) (HCC) 2010 left knee, femur Breast cancer (HCC) Esophageal stricture S/P dilatation Hyperlipidemia Hypertension Hypothyroidism Prolapsed uterus Seasonal allergies PAST SURGICAL HISTORY Procedure Laterality Date ARTHRP KNE CONDYLEANDPLATU MEDIALANDLAT COMPARTMENTS 04/2011 left osteonecrosis BX BREAST PERC VACUUM/ROTN 09/08/11 Right x 2 COLONOSCOPY 06/04/12 repeat due 2021 ESOPHAGOGASTRODUODENOSCOPY TRANSORAL DIAGNOSTIC 01/07/16 EGD ESOPHAGOGASTRODUODENOSCOPY TRANSORAL DIAGNOSTIC 02/16/2016 EGD-MAC ([facility]) HYSTERECTOMY HX 09/27/12 FAUSTO/BSO, prolapse LIG/TRNSXJ FLP TUBE ABDL/VAG APPR UNI/BI 1977 Tubal ligation MASTECTOMY, PARTIAL 10/19/11 SLNBx - Negative PAST SURGICAL HISTORY OF removal of all upper teeth, has plate FAMILY HISTORY Problem Relation Age of Onset Thyroid Mother other (brain tumor) Mother benign Cancer Father stomach Diabetes Maternal Grandmother Thyroid Brother Thyroid Sister hyperthyroidism Cancer Other niece-breast Social History Tobacco Use Smoking status: Never Smokeless tobacco: Never Tobacco comments: smoked for many years. Vaping Use Vaping Use: Never used Substance Us (more content not included)... [facility] 07-10-2023 Miscellaneous Notes Patient has been identified by name and date of : Yes Requested Prescriptions Pending Prescriptions Disp Refills levothyroxine (SYNTHROID) 75 mcg tablet 90 tablet 3 Sig: Take 1 tablet by mouth once daily. Take on empty stomach. For Thyroid RX INSTRUCTIONS: Patient aware RX will be sent to pharmacy. No need to notify patient. Muna Suazo LPN Patient has been identified by name and date of : Yes Requested Prescriptions Pending Prescriptions Disp Refills levothyroxine (SYNTHROID) 75 mcg tablet 90 tablet 3 Sig: Take 1 tablet by mouth once daily. Take on empty stomach. For Thyroid RX INSTRUCTIONS: Patient aware RX will be sent to pharmacy. No need to notify patient. Anastasiia Perez documented in this encounter [facility] 05-17-2023 Note HNO ID: [id number] Author: Brent Howell Mammo Tech Service: ? Author Type: Technologist Type: Progress Notes Filed: 05/17/2023 9:20 AM Note Text: Radiology Service Progress Note PATIENT NAME: Tenzin Lockhart DATE OF SERVICE: May 17, 2023 TIME: 8:54 AM PATIENT IDENTITY VERIFICATION COMPLETED USING TWO (2) IDENTIFIERS: Name and Date of confirmed by patient verbally. FALL SCREENING: Has the patient had 2 falls in the last year or 1 fall with injury or currently using an Ambulatory Assistive Device (Walker, Cane, Wheelchair, Crutches, etc.)? No PATIENT GENDER DATA: Female. status: : No status: NO. PATIENT RELEVANT IMPLANT DATA REVIEWED: Not Applicable RADIOLOGY DEPARTMENT: Mammography PERIPHERAL IV DATA: Not applicable SIGNED BY: Guerda Kirk May 17, 2023 8:54 AM [facility] 04-17-2023 Miscellaneous Notes Spoke with patient and transferred to [facility] for scheduling. Bri Cole Please inform pt. that the radiologist would like additional images of L breast. Please schedule L dx mamm/US soon. Thank you. Aleksandar Gan APRN.SCRAP BREAKER documented in this encounter [facility] 04-17-2023 Note HNO ID: [id number] Author: Selena Vigil OD Service: ? Author Type: SALESPERSON ART OBJECTS Type: Progress Notes Filed: 04/17/2023 9:16 AM Note Text: 1. PVD (posterior vitreous detachment), both eyes Stable Continue to monitor Call with any new flashes/floaters or changes to visual field 2. Combined forms of age-related cataract of both eyes Mild- continue to monitor 3. Presbyopia Continue with OTC readers 4. Chorioretinal scar of left eye Stable- monitor Follow-up in 1 year or sooner as needed Selena Vigil, VICKIE April 17, 2023 9:12 AM [facility] 04-17-2023 Miscellaneous Notes April 17, 2023 PID: [id number] Tenzin Lockhart [address] [place] [address] Dear Ms. Lockhart, Your recent breast imaging exam on 04/17/2023 showed a possible finding that requires additional imaging studies for a complete evaluation. Most such findings are probably benign (not cancer). Your mammogram demonstrates that you have dense breast tissue, which could hide abnormalities. Dense breast tissue, in and of itself, is a relatively common condition. Therefore, this information is not provided to cause undue concern; rather, it is to raise your awareness and promote discussion with your health care provider regarding the presence of dense breast tissue in addition to other risk factors. If you have a healthcare provider who ordered/prescribed your screening mammogram: Please call [phone] or EXT: [phone] to schedule an appointment for your additional imaging (if you have not already done so). If you DO NOT have a healthcare provider (ie you did not have an order/prescription for your screening mammogram): Please call to schedule an appointment for your additional imaging (if you have not already done so). You must have an order/prescription from your physician when calling to schedule your appointment. If your order/prescription is not electronic, you must bring the hard copy with you on the day of your exam to avoid delays. Your imaging studies and reports are kept on file at [facility] as part of your permanent medical record, and are available for your continuing care. Thank you for allowing us to help in meeting your health care needs. Sincerely, Dr. Greenberg Interpreting Radiologist (Additional imaging) documented in this encounter [facility] 04-17-2023 History of Present illness Narrative 1. PVD (posterior vitreous detachment), both eyes Stable Continue to monitor Call with any new flashes/floaters or changes to visual field 2. Combined forms of age-related cataract of both eyes Mild- continue to monitor 3. Presbyopia Continue with OTC readers 4. Chorioretinal scar of left eye Stable- monitor Follow-up in 1 year or sooner as needed Selena Vigil, VICKIE April 17, 2023 9:12 AM documented in this encounter [facility] 02-27-2023 Note HNO ID: [id number] Author: Evy Rodriguez MD Service: ? Author Type: Physician Type: Progress Notes Filed: 02/27/2023 10:11 AM Note Text: Patient presents with: 6 Month Exam HPI: Patient presents today for office visit for follow up. Overall feeling well. No concerns. HYPOTHYROID: Currently taking Levothyroxine 75 mcg daily. No energy changes No hair or skin changes No weight changes HTN: Taking Amlodipine 2.5 mg daily Monitors BP Stable Denies chest pain and shortness of breath No headaches or dizziness No palpitations No syncope No edema Still seeing Aleksandar in oncoloygy. MEDICATIONS: Current Outpatient Medications Medication Sig levothyroxine (SYNTHROID) 75 mcg tablet Take 1 tablet by mouth once daily. Take on empty stomach. For Thyroid amLODIPine (NORVASC) 2.5 mg tablet Take 1 tablet by mouth once daily. ascorbic acid, vitamin C, (VITAMIN C) 500 mg tablet Take 500 mg by mouth once daily. Cholecalciferol, Vitamin D3, 25 mcg (1,000 unit) cap Take 2,000 Units by mouth once daily. FOLIC ACID/MULTIVIT-MIN/LUTEIN (CENTRUM SILVER ORAL) Take 1 tablet by mouth once daily. Cyanocobalamin 1,000 mcg subl Dissolve 1,000 mcg under the tongue once daily. CALCIUM CITRATE/VITAMIN D2 (CALCIUM CITRATE WITH D ORAL) Take 500 mg by mouth once daily. acetaminophen (TYLENOL) 325 mg tablet Take 650 mg by mouth every 6 hours as needed. ferrous sulfate 325 mg (65 mg iron) tablet Take 325 mg by mouth daily with breakfast. No current facility-administered medications for this visit. ALLERGIES: ALLERGIES Allergen Reactions Doxycycline Swelling Seasonal Allergies Unknown PAST MEDICAL HISTORY Diagnosis Date Anemia Anxiety AVN (avascular necrosis of bone) (HCC) 2010 left knee, femur Breast cancer (HCC) Esophageal stricture S/P dilatation Hyperlipidemia Hypertension Hypothyroidism Prolapsed uterus Seasonal allergies PAST SURGICAL HISTORY Procedure Laterality Date ARTHRP KNE CONDYLEANDPLATU MEDIALANDLAT COMPARTMENTS 04/2011 left osteonecrosis BX BREAST PERC VACUUM/ROTN 09/08/11 Right x 2 COLONOSCOPY 06/04/12 repeat due 2021 ESOPHAGOGASTRODUODENOSCOPY TRANSORAL DIAGNOSTIC 01/07/16 EGD ESOPHAGOGASTRODUODENOSCOPY TRANSORAL DIAGNOSTIC 02/16/2016 EGD-MAC ([facility]) HYSTERECTOMY HX 09/27/12 FAUSTO/BSO, prolapse LIG/TRNSXJ FLP TUBE ABDL/VAG APPR UNI/BI 1977 Tubal ligation MASTECTOMY, PARTIAL 10/19/11 SLNBx - Negative PAST SURGICAL HISTORY OF removal of all upper teeth, has plate FAMILY HISTORY Problem Relation Age of Onset Thyroid Mother other (brain tumor) Mother benign Cancer Father stomach Diabetes Maternal Grandmother Thyroid Brother Thyroid Sister hyperthyroidism Cancer Other niece-breast Social History Tobacco Use Smoking status: Never Smokeless tobacco: Never Tobacco comments: smoked for many years. Vaping Use Vaping Use: Never used Substance Use Topics Alcohol use: Yes Comment: rare Drug use: No Reviewed current medications, allergies, past medical history, surgical history, family history and social history today. REVIEW OF SYSTEMS All other reviewed and negative other than HPI. HEALTH MAINTENANCE: Reviewed health maintenance issues today and recommended the following in detail. BP CONTROLLED (<130/80) Never done ADVANCE DIRECTIVE DISCUSSION - has one. Her oldest daugherEvelyn is her dpoa. VITALS: BP 132/86 Pulse 65 Ht 160 cm (5' 3 ) Wt 59.3 kg (130 lb 12.8 oz) SpO2 98% BMI 23.17 kg/m? Last 4 Encounter Wt Readings: Date: Wt: 09/28/2022 62.4 kg (137 lb 8 oz) 09/07/2022 61.7 kg (136 lb) 06/15/2022 62.6 kg (138 lb) 03/03/2022 62.6 kg (138 lb) PHYSICAL EXAMINATION: General appearance: Well appearing, alert, in no acute distress, well-hydrated, well nourished. Skin: Skin color, texture, turgor normal, no suspicious rashes or lesions Head: Normocephalic, no masses, lesions, tenderness or abnormalities Eyes: Anicteric sclera. Pupils are equally round and reactive to light. Extraocular movements are intact. Lungs: Lungs clear to auscultation. No wheezing, rhonchi, rales Heart: RRR without murmur, gallop, or rubs. No ectopy Abdomen: Normal abdominal exam, Abdomen soft, non-tender. Bowel sounds normal. No masses, organomegaly Extremities: No deformities, edema, skin discoloration, clubbing or cyanosis. Good capillary refill. Musculoskeletal: No joint swelling, deformity, or tenderness ASSESSMENT/PLAN: 1. Hyperlipidemia, unspecified hyperlipidemia type - ICD9: 272.4, ICD10: E78.5 (primary diagnosis) - Controlled - Continue current medications - COMP METABOLIC PANEL - LIPID PANEL BASIC 2. Essential hypertension - ICD9: 401.9, ICD10: I10 - Controlled - Continue current medications - AMLODIPINE 2.5 MG TABLET - CBC + DIFF - COMP METABOLIC PANEL 3. Hypothyroidism, unspecified type - ICD9: 244.9, ICD10: E03.9 - follow up on follow up. (more content not included)... [facility] 02-27-2023 History of Present illness Narrative Patient presents with: 6 Month Exam HPI: Patient presents today for office visit for follow up. Overall feeling well. No concerns. HYPOTHYROID: Currently taking Levothyroxine 75 mcg daily. No energy changes No hair or skin changes No weight changes HTN: Taking Amlodipine 2.5 mg daily Monitors BP Stable Denies chest pain and shortness of breath No headaches or dizziness No palpitations No syncope No edema Still seeing [place] in oncoloygy. MEDICATIONS: Current Outpatient Medications Medication Sig levothyroxine (SYNTHROID) 75 mcg tablet Take 1 tablet by mouth once daily. Take on empty stomach. For Thyroid amLODIPine (NORVASC) 2.5 mg tablet Take 1 tablet by mouth once daily. ascorbic acid, vitamin C, (VITAMIN C) 500 mg tablet Take 500 mg by mouth once daily. Cholecalciferol, Vitamin D3, 25 mcg (1,000 unit) cap Take 2,000 Units by mouth once daily. FOLIC ACID/MULTIVIT-MIN/LUTEIN (CENTRUM SILVER ORAL) Take 1 tablet by mouth once daily. Cyanocobalamin 1,000 mcg subl Dissolve 1,000 mcg under the tongue once daily. CALCIUM CITRATE/VITAMIN D2 (CALCIUM CITRATE WITH D ORAL) Take 500 mg by mouth once daily. acetaminophen (TYLENOL) 325 mg tablet Take 650 mg by mouth every 6 hours as needed. ferrous sulfate 325 mg (65 mg iron) tablet Take 325 mg by mouth daily with breakfast. No current facility-administered medications for this visit. ALLERGIES: ALLERGIES Allergen Reactions Doxycycline Swelling Seasonal Allergies Unknown PAST MEDICAL HISTORY Diagnosis Date Anemia Anxiety AVN (avascular necrosis of bone) (HCC) 2010 left knee, femur Breast cancer (HCC) Esophageal stricture S/P dilatation Hyperlipidemia Hypertension Hypothyroidism Prolapsed uterus Seasonal allergies PAST SURGICAL HISTORY Procedure Laterality Date ARTHRP KNE CONDYLE&PLATU MEDIAL&LAT COMPARTMENTS 04/2011 left osteonecrosis BX BREAST PERC VACUUM/ROTN 09/08/11 Right x 2 COLONOSCOPY 06/04/12 repeat due 2021 ESOPHAGOGASTRODUODENOSCOPY TRANSORAL DIAGNOSTIC 01/07/16 EGD ESOPHAGOGASTRODUODENOSCOPY TRANSORAL DIAGNOSTIC 02/16/2016 EGD-MAC ([facility]) HYSTERECTOMY HX 09/27/12 FAUSTO/BSO, prolapse LIG/TRNSXJ FLP TUBE ABDL/VAG APPR UNI/BI 1977 Tubal ligation MASTECTOMY, PARTIAL 10/19/11 SLNBx - Negative PAST SURGICAL HISTORY OF removal of all upper teeth, has plate FAMILY HISTORY Problem Relation Age of Onset Thyroid Mother other (brain tumor) Mother benign Cancer Father stomach Diabetes Maternal Grandmother Thyroid Brother Thyroid Sister hyperthyroidism Cancer Other niece-breast Social History Tobacco Use Smoking status: Never Smokeless tobacco: Never Tobacco comments: smoked for many years. Vaping Use Vaping Use: Never used Substance Use Topics Alcohol use: Yes Comment: rare Drug use: No Reviewed current medications, allergies, past medical history, surgical history, family history and social history today. REVIEW OF SYSTEMS All other reviewed and negative other than HPI. HEALTH MAINTENANCE: Reviewed health maintenance issues today and recommended the following in detail. BP CONTROLLED (<130/80) Never done ADVANCE DIRECTIVE DISCUSSION - has one. Her oldest daugherEvelyn is her dpoa. VITALS: BP 132/86 Pulse 65 Ht 160 cm (5' 3 ) Wt 59.3 kg (130 lb 12.8 oz) SpO2 98% BMI 23.17 kg/m Last 4 Encounter Wt Readings: Date: Wt: 09/28/2022 62.4 kg (137 lb 8 oz) 09/07/2022 61.7 kg (136 lb) 06/15/2022 62.6 kg (138 lb) 03/03/2022 62.6 kg (138 lb) PHYSICAL EXAMINATION: General appearance: Well appearing, alert, in no acute distress, well-hydrated, well nourished. Skin: Skin color, texture, turgor normal, no suspicious rashes or lesions Head: Normocephalic, no masses, lesions, tenderness or abnormalities Eyes: Anicteric sclera. Pupils are equally round and reactive to light. Extraocular movements are intact. Lungs: Lungs clear to auscultation. No wheezing, rhonchi, rales Heart: RRR without murmur, gallop, or rubs. No ectopy Abdomen: Normal abdominal exam, Abdomen soft, non-tender. Bowel sounds normal. No masses, organomegaly Extremities: No deformities, edema, skin discoloration, clubbing or cyanosis. Good capillary refill. Musculoskeletal: No joint swelling, deformity, or tenderness ASSESSMENT/PLAN: 1. Hyperlipidemia, unspecified hyperlipidemia type - ICD9: 272.4, ICD10: E78.5 (primary diagnosis) - Controlled - Continue current medications - COMP METABOLIC PANEL - LIPID PANEL BASIC 2. Essential hypertension - ICD9: 401.9, ICD10: I10 - Controlled - Continue current medications - AMLODIPINE 2.5 MG TABLET - CBC + DIFF - COMP METABOLIC PANEL 3. Hypothyroidism, unspecified type - ICD9: 244.9, ICD10: E03.9 - follow up on follow up. - TSH BLD 4. History of breast cancer - ICD9: V10.3, ICD10: Z85.3 - stable. Evy Rodriguez MD documented in this encounter [facility] 09-28-2022 History of Present illness Narrative Chief Complaint Patient presents with: Established Patient HPI: Tenzin Lockhart is a 76 year old female who presents here today for follow up breast cancer. Per Dr. Marquis's previous note: H/o screening mammogram (first in about 8-9 years) and was found to have an abnormality in the right breast. Subsequent right breast diagnostic mammogram revealed two groupings of calcifications in the right breast, 1 grouping consisting of pleomorphic microcalcifications the other of calcifications associated with an irregular nodule. She then underwent a bilateral breast MRI on 09/15/11. That study revealed a 2.3 cm spiculated abnormal enhancing mass in the upper outer quadrant of the right breast 7 cm posterior to the nipple. There was no axillary adenopathy noted. There were no areas of abnormal enhancement in the left breast. The patient had undergone a biopsy on 09/09/11. The tissue pathology was positive for invasive ductal carcinoma. 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 Estrogen and progesterone receptors were both positive at 98%. HER-2 was quantified at 0-1+. The patient subsequently underwent breast conserving surgery consisting of partial mastectomy and sentinel lymph node sampling procedure on 10/19/11. The final pathology revealed 2 foci of carcinoma in the specimen. One measured 2.2 cm in greatest dimension and 1 was 2.5 mm in greatest dimension. Margins were negative. The closest was the posterior margin 1.5 cm. Angiolymphatic invasion was not identified. The overall grade was 2. Completed Docetaxel 75 mg/m2 and cyclophosphamide 600 mg/m2 day 1, every 3 weeks for a total of 4 cycles. Completed radiation on 04/18/12. Started arimidex afterward. Completed therapy. Pt. had a hystr/bso 09/2012. No new concerns today. Appetite: It's good. I eat healthier. Wt. stable. Energy level: Good. I'd say a 10. Denies fevers or recent illness. Resp:denies cough or sob Cardiac:denies chest pain/palpitations GI:denies abd pain, n/v, moving bowels regularly :denies dysuria/hematuria Endo:denies hot flashes Extrem:denies pain, +arthritis to fingers Neuro:occ.tingling to finger tips R>L Skin:denies rashes/lesions Heme:denies bleeding The ROS is otherwise negative. Past medical history, appointments, medications, allergies reviewed. No changes. EXAM: BP 124/81 Pulse 64 Temp 36.8 C (98.3 F) (Temporal) Ht 160 cm (5' 3 ) Wt 62.4 kg (137 lb 8 oz) BMI 24.36 kg/m APPEARANCE Well appearing, alert, in no acute distress, well-hydrated, well nourished. HEART RRR with normal S1 and S2, no murmurs LUNG clear to auscultation BREAST no mass/nodule b/l, R radiation changes LYMPH NODES No cervical lymphadenopathy, No supraclavicular lymphadenopathy, and No axillary lymphadenopathy. ABDOMEN bowel sounds normoactive, soft, non-tender EXTREMITIES No edema NEURO Awake, alert and oriented x 3, Normal gait, and No involuntary motions. SKIN Skin color, texture, turgor normal, no suspicious rashes or lesions ASSESSMENT/PLAN: 1. 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 - No concerning findings on exam. - Pt. completed 5 years of arimidex. We previously discussed continuing on femara for another 5 years. Pt. declined d/t her hand/joint aches/pains/stiffness. - Mammogram due March 2023. - Follow up in one year. - Pt. aware to call office with any questions/concerns. The patient indicates understanding of these issues and agrees with the plan. All documentation from previous visit of 09/28/21-Dr. Marquis/myself was copied and pasted, documentation has been reviewed and edited as necessary for today's visit. Aleksandar Gan APRN.ROSEMARIE documented in this encounter [facility] 09-26-2022 Miscellaneous Notes Pt notified. She verbalized understanding Alexander Jones LPN Let her know he cologuard is negative. She is good for three years documented in this encounter [facility] 09-07-2022 Miscellaneous Notes Patient returned call and given provider's message below and patient verbalized understanding. Cari Maza RN Called and left a voicemail for the Patient to call back and ask for a nurse to receive the providers message. Jayashree Guillen, RN Let her know I was correct. Her platelets were clumped which were falsely lowered. Looks ok. documented in this encounter [facility] 09-07-2022 Miscellaneous Notes Addended by: EVY RODRIGUEZ on: 09/07/2022 10:20 AM Modules accepted: Orders documented in this encounter [facility] 09-07-2022 History of Present illness Narrative Patient presents with: 6 Month Exam HPI: Patient presents today for office visit for follow up. No concerns today. Overall feeling well. HTN: Monitors BP at home occasionally Stable Denies chest pain and shortness of breath No headaches or dizziness No edema HYPOTHYROID: Taking Levothyroxine 75 mcg Last TSH 1.850 09/01/22 No hair or skin changes No energy changes Her platelets were low. Has been low in the past. Does see hemeonc in a few weeks. No bleeding or bruising. May be falsely decreased Discussed watching diet for her cholesterol. Component Latest Ref Rng & Units 09/01/2022 WBC 3.70 - 11.00 k/uL 4.02 RBC 3.90 - 5.20 m/uL 4.52 Hemoglobin 11.5 - 15.5 g/dL 13.5 Hematocrit 36.0 - 46.0 % 41.4 MCV 80.0 - 100.0 fL 91.6 MCH 26.0 - 34.0 pg 29.9 MCHC 30.5 - 36.0 g/dL 32.6 RDW-CV 11.5 - 15.0 % 13.8 Platelet Count 150 - 400 k/uL 50 (L) MPV 9.0 - 12.7 fL 11.5 Neut% % 53.3 Abs Neut (ANC) 1.45 - 7.50 k/uL 2.14 Lymph% % 29.1 Abs Lymph 1.00 - 4.00 k/uL 1.17 Bowie% % 12.2 Abs Bowie <0.87 k/uL 0.49 Eosin% % 4.0 Abs Eosin <0.46 k/uL 0.16 Baso% % 1.2 Abs Baso <0.11 k/uL 0.05 Immature Gran % % 0.2 IMMATURE GRANS (ABS) <0.10 k/uL <0.03 NRBC /100 WBC 0.0 Absolute nRBC <0.01 k/uL <0.01 DTYPE Auto Protein, Total 6.3 - 8.0 g/dL 6.6 Albumin 3.9 - 4.9 g/dL 4.3 Calcium 8.5 - 10.2 mg/dL 9.6 Bilirubin, Total 0.2 - 1.3 mg/dL 0.5 Alkaline Phosphatase 34 - 123 U/L 82 AST 13 - 35 U/L 28 ALT 7 - 38 U/L 16 Glucose 74 - 99 mg/dL 89 BUN 7 - 21 mg/dL 12 Creatinine 0.58 - 0.96 mg/dL 0.97 (H) Sodium 136 - 144 mmol/L 141 Potassium 3.7 - 5.1 mmol/L 4.4 Chloride 97 - 105 mmol/L 106 (H) CO2 22 - 30 mmol/L 27 Anion Gap 9 - 18 mmol/L 8 (L) eGFR >=60 mL/min/1.73m 61 Cholesterol, Total <200 mg/dL 213 (H) Triglyceride <150 mg/dL 110 HDL Cholesterol >39 mg/dL 49 Non HDL Cholesterol <130 mg/dL 164 (H) Fasting Time hrs 13 VLDL Cholesterol <30 mg/dL 22 TC:HDL Ratio <5.10 4.35 LDL Cholesterol <100 mg/dL 142 (H) LDL:HDL Ratio <2.54 2.90 (H) TSH 0.270 - 4.200 mIU/L 1.850 MEDICATIONS: Current Outpatient Medications Medication Sig levothyroxine (SYNTHROID) 75 mcg tablet Take 1 tablet by mouth once daily. Take on empty stomach. For Thyroid amLODIPine (NORVASC) 2.5 mg tablet Take 1 tablet by mouth once daily. ascorbic acid, vitamin C, (VITAMIN C) 500 mg tablet Take 500 mg by mouth once daily. Cholecalciferol, Vitamin D3, 25 mcg (1,000 unit) cap Take 2,000 Units by mouth once daily. FOLIC ACID/MULTIVIT-MIN/LUTEIN (CENTRUM SILVER ORAL) Take 1 tablet by mouth once daily. Cyanocobalamin 1,000 mcg subl Dissolve 500 mcg under the tongue once daily. Vitamin B12 1500mcg CALCIUM CITRATE/VITAMIN D2 (CALCIUM CITRATE WITH D ORAL) Take 500 mg by mouth once daily. acetaminophen (TYLENOL) 325 mg tablet Take 650 mg by mouth every 6 hours as needed. ferrous sulfate 325 mg (65 mg iron) tablet Take 325 mg by mouth daily with breakfast. No current facility-administered medications for this visit. ALLERGIES: ALLERGIES Allergen Reactions Doxycycline Swelling Seasonal Allergies Unknown PAST MEDICAL HISTORY Diagnosis Date Anemia Anxiety AVN (avascular necrosis of bone) (HCC) 2010 left knee, femur Breast cancer (HCC) Esophageal stricture S/P dilatation Hyperlipidemia Hypertension Hypothyroidism Prolapsed uterus Seasonal allergies PAST SURGICAL HISTORY Procedure Laterality Date ARTHRP KNE CONDYLE&PLATU MEDIAL&LAT COMPARTMENTS 04/2011 left osteonecrosis BX BREAST PERC VACUUM/ROTN 09/08/11 Right x 2 COLONOSCOPY 06/04/12 repeat due 2021 ESOPHAGOGASTRODUODENOSCOPY TRANSORAL DIAGNOSTIC 01/07/16 EGD ESOPHAGOGASTRODUODENOSCOPY TRANSORAL DIAGNOSTIC 02/16/2016 EGD-MAC ([facility]) HYSTERECTOMY HX 09/27/12 FAUSTO/BSO, prolapse LIG/TRNSXJ FLP TUBE ABDL/VAG APPR UNI/BI 1977 Tubal ligation MASTECTOMY, PARTIAL 10/19/11 SLNBx - Negative PAST SURGICAL HISTORY OF removal of all upper teeth, has plate FAMILY HISTORY Problem Relation Age of Onset Thyroid Mother other (brain tumor) Mother benign Cancer Father stomach Diabetes Maternal Grandmother Thyroid Brother Thyroid Sister hyperthyroidism Cancer Other niece-breast Social History Tobacco Use Smoking status: Never Smokeless tobacco: Never Tobacco comments: smoked for many years. Vaping Use Vaping Use: Never used Substance Use Topics Alcohol use: Yes Comment: rare Drug use: No Reviewed current medications, allergies, past medical history, surgical history, family history and social history today. REVIEW OF SYSTEMS All other reviewed and negative other than HPI. HEALTH MAINTENANCE: Reviewed health maintenance issues today and recommended the following in detail. INFLUENZA(1) -declines COLORECTAL CANCER SCREENING - ADVANCE DIRECTIVE DISCUSSION Never done DEPRESSION ASSESSMENT done VITALS: BP 134/88 Pulse 70 Ht 160 cm (5' 3 ) Wt 61.7 kg (136 lb) SpO2 99% BMI 24.09 kg/m Last 4 Encounter Wt Readings: Date: Wt: 06/15/2022 62.6 kg (138 lb) 03/03/2022 62.6 kg (138 lb) 09/28/2021 62.8 kg (138 lb 8 oz) 09/03/2021 62.2 kg (137 lb 3.2 oz) PHYSICAL EXAMINATION: General appearance: Well appearing, alert, in no acute distress, well-hydrated, well nourished. Skin: Skin color, texture, turgor normal, no suspicious rashes or lesions Head: Normocephalic, no masses, lesions, tenderness or abnormalities Lungs: Lungs clear to auscultation. No wheezing, rhonchi, rales Heart: RRR without murmur, gallop, or rubs. No ectopy Abdomen: Normal abdominal exam, Abdomen soft, non-tender. Bowel sounds normal. No masses, organomegaly Extremities: No deformities, edema, skin discoloration, clubbing or cyanosis. Good capillary refill. ASSESSMENT/PLAN: 1. Essential hypertension - ICD9: 401.9, ICD10: I10 (primary diagnosis) - good control - Continue current medication(s) - Goal of BP <130/80 2. Thrombocytopenia (HCC) - ICD9: 287.5, ICD10: D69.6 - recheck citrated count. May be falsely decreased. Red flags for re-assessment reviewed with patient in detail. - CITRATED PLATELET COUNT 3. Hyperlipidemia, unspecified hyperlipidemia type - ICD9: 272.4, ICD10: E78.5 - good control - Continue current medication. 4. Hypothyroidism, unspecified type - ICD9: 244.9, ICD10: E03.9 - well controlled. 5. History of breast cancer - ICD9: V10.3, ICD10: Z85.3 - continue to see heme onc Evy Rodriguez MD RTO in six months documented in this encounter [facility] 07-18-2022 Miscellaneous Notes Patient has been identified by name and date of : Yes Requested Prescriptions Pending Prescriptions Disp Refills levothyroxine (SYNTHROID) 75 mcg tablet 90 tablet 3 Sig: Take 1 tablet by mouth once daily. Take on empty stomach. For Thyroid RX INSTRUCTIONS: Patient aware RX will be sent to pharmacy. No need to notify patient. Beatrice Boyce documented in this encounter [facility] 06-15-2022 Instructions Niki Costa APRN.ROSEMARIE - 06/15/2022 10:28 AM EDT - RICE therapy - see patient instructions for further recommendations. - F/U with PCP in 5-7 days or before if worse. - Discussed Red Flag signs and when to go to ER. - Reviewed plan of care and DC papers with patient. Verbalized understanding. documented in this encounter [facility] 06-15-2022 History of Present illness Narrative Images from the original note were not included. Subjective She came in with complaints of right foot and ankle pain. Patient says she was working in the yard about 4 days ago and was not wearing supportive shoes and she just kept working. Patient says she noticed the next morning that her foot and ankle were slightly swollen and painful said she has tried to rest it ice it for several days with no relief. Patient is currently using crutches to get around. Patient says she has had trouble with that foot before. Patient denies any numbness tingling or loss of feeling in the foot. The history is provided by the patient. No speech/language therapist was used. Pain (foot) Review of Systems Constitutional: Negative for malaise/fatigue. Skin: Negative. Objective Physical Exam Constitutional: Appearance: Normal appearance. Pulmonary: Effort: Pulmonary effort is normal. Musculoskeletal: Feet: Feet: Comments: Patient says she is experiencing the pain in the area marked above. Patient says range of motion with the right ankle creates more pain and walking put placing pressure on the ankle creates pain on the foot and ankle. Neurological: Mental Status: She is alert. PAST MEDICAL HISTORY Diagnosis Date Anemia Anxiety AVN (avascular necrosis of bone) ([facility]) 2010 left knee, femur Breast cancer (HCC) Esophageal stricture S/P dilatation Hyperlipidemia Hypertension Hypothyroidism Prolapsed uterus Seasonal allergies PAST SURGICAL HISTORY Procedure Laterality Date ARTHRP KNE CONDYLE&PLATU MEDIAL&LAT COMPARTMENTS 04/2011 left osteonecrosis BX BREAST PERC VACUUM/ROTN 09/08/11 Right x 2 COLONOSCOPY 06/04/12 repeat due 2021 ESOPHAGOGASTRODUODENOSCOPY TRANSORAL DIAGNOSTIC 01/07/16 EGD ESOPHAGOGASTRODUODENOSCOPY TRANSORAL DIAGNOSTIC 02/16/2016 EGD-MAC ([facility]) HYSTERECTOMY HX 09/27/12 FAUSTO/BSO, prolapse LIG/TRNSXJ FLP TUBE ABDL/VAG APPR UNI/BI 1977 Tubal ligation MASTECTOMY, PARTIAL 10/19/11 SLNBx - Negative PAST SURGICAL HISTORY OF removal of all upper teeth, has plate ALLERGIES Doxycycline and Seasonal Allergies MEDICATIONS amLODIPine (NORVASC) 2.5 mg tablet Take 1 tablet by mouth once daily. levothyroxine (SYNTHROID) 75 mcg tablet Take 1 tablet by mouth once daily. Take on empty stomach. For Thyroid ascorbic acid, vitamin C, (VITAMIN C) 500 mg tablet Take 500 mg by mouth once daily. Cholecalciferol, Vitamin D3, 25 mcg (1,000 unit) cap Take 2,000 Units by mouth once daily. FOLIC ACID/MULTIVIT-MIN/LUTEIN (CENTRUM SILVER ORAL) Take 1 tablet by mouth once daily. Cyanocobalamin 1,000 mcg subl Dissolve 500 mcg under the tongue once daily. Vitamin B12 1500mcg CALCIUM CITRATE/VITAMIN D2 (CALCIUM CITRATE WITH D ORAL) Take 500 mg by mouth once daily. acetaminophen (TYLENOL) 325 mg tablet Take 650 mg by mouth every 6 hours as needed. ferrous sulfate 325 mg (65 mg iron) tablet Take 325 mg by mouth daily with breakfast. FAMILY HISTORY Problem Relation Age of Onset Thyroid Mother other (brain tumor) Mother benign Cancer Father stomach Diabetes Maternal Grandmother Thyroid Brother Thyroid Sister hyperthyroidism Cancer Other niece-breast Social History Tobacco Use Smoking status: Never Smokeless tobacco: Never Tobacco comments: smoked for many years. Vaping Use Vaping Use: Never used Substance Use Topics Alcohol use: Yes Comment: rare Drug use: No ASSESSMENT/PLAN: 1. Pain - ICD9: 780.96, ICD10: R52 - XR FOOT GENERAL 3V AP/LAT/OBL RIGHT - XR ANKLE GENERAL 3V AP/LAT/OBL RIGHT * * * * Physician Interpretation * * * * Right ankle and foot HISTORY: 76 years old Clinical information: Pain Right lateral ankle and lateral forefoot pain x 4 days after over using her leg. TECHNIQUE: Images: XR FOOT 3V AP/LAT/OBL RT, XR ANKLE 3V AP/LAT/OBL RT Comparison: None. RESULT: Findings: No acute fracture or bony destruction. Narrowing and hypertrophic spurring first and second MTP joints with associated subchondral cysts. Ankle mortise maintained. There is a calcaneal enthesophyte at the origin of the plantar fascia. IMPRESSION IMPRESSION: No acute bony finding. 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 Patient was instructed to rest ice elevate and try the prednisone and see if this helps. If symptoms are not getting any better patient will follow-up with primary care. Patient was okay with this care plan. Niki Costa APRN.ROSEMARIE documented in this encounter [facility] 04-15-2022 History of Present illness Narrative 1. PVD (posterior vitreous detachment), both eyes Educated pt on condition Continue to observe Call with any new flashes/floaters 2. Combined forms of age-related cataract of both eyes Educated pt-mild Observe 3. Presbyopia Continue with OTC readers 4. Chorioretinal scar of left eye Observe 5. Blepharitis of upper and lower eyelids of both eyes, unspecified type Use warm compresses as needed for itching Monitor 1 year or sooner as needed Selena Vigil, VICKIE April 15, 2022 9:40 AM documented in this encounter [facility] 04-14-2022 Miscellaneous Notes April 14, 2022 PID: [id number] Tenzin Lockhart [address] [place] [address] Dear Ms. Lockhart, We are pleased to inform you that the results of your recent breast imaging exam on 04/14/2022 are normal. Your mammogram demonstrates that you have dense breast tissue, which could hide abnormalities. Dense breast tissue, in and of itself, is a relatively common condition. Therefore, this information is not provided to cause undue concern; rather, it is to raise your awareness and promote discussion with your health care provider regarding the presence of dense breast tissue in addition to other risk factors. Early detection of cancer is very important. We also understand recommendations regarding breast cancer screening are controversial. Please discuss with your primary care provider which strategy is best for you and whether a mammogram is right for you. Your imaging studies and report will be kept on file at [facility] as part of your permanent medical record and are available for your continuing care. Thank you for allowing us to help in meeting your health care needs. Sincerely, Dr. Greenberg Interpreting Radiologist (Normal over 40) documented in this encounter [facility] 04-14-2022 History of Present illness Narrative Radiology Service Progress Note PATIENT NAME: Tenzin Lockhart DATE OF SERVICE: April 14, 2022 TIME: 8:31 AM PATIENT IDENTITY VERIFICATION COMPLETED USING TWO (2) IDENTIFIERS: Name and Date of confirmed by patient verbally. FALL SCREENING: Has the patient had 2 falls in the last year or 1 fall with injury or currently using an Ambulatory Assistive Device (Walker, Cane, Wheelchair, Crutches, etc.)? No PATIENT GENDER DATA: Female. status: : No status: NO. PATIENT RELEVANT IMPLANT DATA REVIEWED: Not Applicable RADIOLOGY DEPARTMENT: Mammography PERIPHERAL IV DATA: Not applicable SIGNED BY: RT Pearl(R) April 14, 2022 8:31 AM documented in this encounter [facility] 03-03-2022 History of Present illness Narrative Patient presents with: 6 Month Exam HPI: Patient presents today for office visit for follow up. HTN: Patient is compliant with meds Yes. Monitors bp at home: Yes. Once a week. Denies side effects: No. Chest pain: No. Dyspnea: No. Edema: No. Palpitations: No. Syncope: No. Headache: No. Dizziness: No. HYPOTHYROID: Patient is compliant with medications: Yes Patient has changes in energy: No Patient has changes in hair or skin: No Patient has temperature intolerance: No Patient has weight changes: No Hx of COVID. Taste and smell gradually coming back. No other chronic symptoms. ONCOLOGY:follows with Aleksandar Gan regularly. Next appt in the new year of 2022. PSYCH: Overall mood is well. Good appetite and fluid intake. Sleeping well. Component Latest Ref Rng & Units 08/27/2021 09/28/2021 WBC 3.70 - 11.00 k/uL 4.01 RBC 3.90 - 5.20 m/uL 4.47 Hemoglobin 11.5 - 15.5 g/dL 13.6 Hematocrit 36.0 - 46.0 % 40.8 MCV 80.0 - 100.0 fL 91.3 MCH 26.0 - 34.0 pG 30.4 MCHC 30.5 - 36.0 g/dL 33.3 RDW-CV 11.5 - 15.0 % 13.2 Platelet Count 150 - 400 k/uL 190 MPV 9.0 - 12.7 fL 8.9 (L) Neut% % 61.4 Abs Neut (ANC) 1.45 - 7.50 k/uL 2.46 Lymph% % 23.7 Abs Lymph 1.00 - 4.00 k/uL 0.95 (L) Bowie% % 9.7 Abs Bowie <0.87 k/uL 0.39 Eosin% % 4.5 Abs Eosin <0.46 k/uL 0.18 Baso% % 0.7 Abs Baso <0.11 k/uL 0.03 Nucleated Reds 0 /100 WBC 0.0 Absolute nRBC <0.01 k/uL <0.01 Diff Type Auto Diff Protein, Total 6.3 - 8.0 g/dL 6.6 Albumin 3.9 - 4.9 g/dL 4.3 Calcium 8.5 - 10.2 mg/dL 9.7 Bilirubin, Total 0.2 - 1.3 mg/dL 0.5 Alkaline Phosphatase 34 - 123 U/L 92 AST 13 - 35 U/L 23 Glucose 74 - 99 mg/dL 93 BUN 7 - 21 mg/dL 12 Creatinine 0.58 - 0.96 mg/dL 0.88 Sodium 136 - 144 mmol/L 141 Potassium 3.7 - 5.1 mmol/L 3.5 (L) 3.7 Chloride 97 - 105 mmol/L 105 CO2 22 - 30 mmol/L 24 Anion Gap 9 - 18 mmol/L 12 ALT 7 - 38 U/L 13 eGFR- >60 eGFR-All Other Races . >60 Cholesterol, Total <200 mg/dL 220 (H) Triglyceride <150 mg/dL 108 HDL Cholesterol >39 mg/dL 56 LDL Cholesterol <100 mg/dL 142 (H) Non HDL Cholesterol <130 mg/dL 164 (H) Fasting Time hrs 12 VLDL Cholesterol <30 mg/dL 22 TC:HDL Ratio <5.10 3.93 LDL:HDL Ratio <2.54 2.54 (H) MEDICATIONS: Current Outpatient Medications Medication Sig levothyroxine (SYNTHROID) 75 mcg tablet Take 1 tablet by mouth once daily. Take on empty stomach. For Thyroid ascorbic acid, vitamin C, (VITAMIN C) 500 mg tablet Take 500 mg by mouth once daily. amLODIPine (NORVASC) 2.5 mg tablet Take 1 tablet by mouth once daily. Cholecalciferol, Vitamin D3, (VITAMIN D) 1,000 unit cap Take 2,000 Units by mouth once daily. FOLIC ACID/MULTIVIT-MIN/LUTEIN (CENTRUM SILVER ORAL) Take 1 tablet by mouth once daily. Cyanocobalamin (VITAMIN B-12) 1,000 mcg subl Dissolve 500 mcg under the tongue once daily. Vitamin B12 1500mcg CALCIUM CITRATE/VITAMIN D2 (CALCIUM CITRATE WITH D ORAL) Take 500 mg by mouth once daily. acetaminophen (TYLENOL) 325 mg ORAL tablet Take 650 mg by mouth every 6 hours as needed. Ferrous Sulfate (IRON) 325 mg (65 mg iron) ORAL tablet Take 325 mg by mouth daily with breakfast. No current facility-administered medications for this visit. ALLERGIES: ALLERGIES Allergen Reactions Doxycycline Swelling Seasonal Allergies Unknown PAST MEDICAL HISTORY Diagnosis Date Anemia Anxiety AVN (avascular necrosis of bone) (HCC) 2010 left knee, femur Breast cancer (HCC) Esophageal stricture S/P dilatation Hyperlipidemia Hypertension Hypothyroidism Prolapsed uterus Seasonal allergies PAST SURGICAL HISTORY Procedure Laterality Date ARTHRP KNE CONDYLE&PLATU MEDIAL&LAT COMPARTMENTS 04/2011 left osteonecrosis BX BREAST PERC VACUUM/ROTN 09/08/11 Right x 2 COLONOSCOPY 06/04/12 repeat due 2021 ESOPHAGOGASTRODUODENOSCOPY TRANSORAL DIAGNOSTIC 01/07/16 EGD ESOPHAGOGASTRODUODENOSCOPY TRANSORAL DIAGNOSTIC 02/16/2016 EGD-MAC ([facility]) HYSTERECTOMY HX 09/27/12 FAUSTO/BSO, prolapse LIG/TRNSXJ FLP TUBE ABDL/VAG APPR UNI/BI 1977 Tubal ligation MASTECTOMY, PARTIAL 10/19/11 SLNBx - Negative PAST SURGICAL HISTORY OF removal of all upper teeth, has plate FAMILY HISTORY Problem Relation Age of Onset Thyroid Mother other (brain tumor) Mother benign Cancer Father stomach Diabetes Maternal Grandmother Thyroid Brother Thyroid Sister hyperthyroidism Cancer Other niece-breast Social History Tobacco Use Smoking status: Never Smoker Smokeless tobacco: Never Used Tobacco comment: smoked for many years. Vaping Use Vaping Use: Never used Substance Use Topics Alcohol use: Yes Comment: rare Drug use: No Reviewed current medications, allergies, past medical history, surgical history, family history and social history today. REVIEW OF SYSTEMS All other reviewed and negative other than HPI. HEALTH MAINTENANCE: Reviewed health maintenance issues today and recommended the following in detail. COVID-19 VACCINE(1) Discussed with patient. Patient refused. BP CONTROLLED (<130/80) Never done SHINGRIX VACCINE(1 of 2) Discussed with patient. Patient refused. DTAP,TDAP,TD(1 - Tdap) Patient refused today. ADVANCE DIRECTIVE DISCUSSION Never done. Discussed with patient. MAMMOGRAM - Scheduled for next month in March. VITALS: BP 138/82 Pulse 64 Wt 62.6 kg (138 lb) BMI 24.00 kg/m Last 4 Encounter Wt Readings: Date: Wt: 09/28/2021 62.8 kg (138 lb 8 oz) 09/03/2021 62.2 kg (137 lb 3.2 oz) 03/03/2021 59 kg (130 lb) 10/16/2020 58.7 kg (129 lb 8 oz) PHYSICAL EXAMINATION: General appearance: Well appearing, alert, in no acute distress, well-hydrated, well nourished. Skin: Skin color, texture, turgor normal, no suspicious rashes or lesions Head: Normocephalic, no masses, lesions, tenderness or abnormalities Lungs: Lungs clear to auscultation. No wheezing, rhonchi, rales Heart: RRR without murmur, gallop, or rubs. No ectopy Abdomen: Normal abdominal exam, Abdomen soft, non-tender. Bowel sounds normal. No masses, organomegaly Extremities: No deformities, edema, skin discoloration, clubbing or cyanosis. Good capillary refill. Musculoskeletal: No joint swelling, deformity, or tenderness Peripheral pulses: Normal Neuro: Negative. ASSESSMENT/PLAN: 1. Essential hypertension - ICD9: 401.9, ICD10: I10 (primary diagnosis) - good control - Continue current medication(s) - Goal of BP <130/80 - AMLODIPINE 2.5 MG TABLET - CBC + DIFF - COMP METABOLIC PANEL - LIPID PANEL BASIC 2. Hypokalemia - ICD9: 276.8, ICD10: E87.6 - follow labs 3. Hypothyroidism, unspecified type - ICD9: 244.9, ICD10: E03.9 - wants to check it next time. - TSH BLD 4. History of breast cancer - ICD9: V10.3, ICD10: Z85.3 - per oncology Evy Rodriguez RTO in six months and prn. documented in this encounter [facility] documented as of this encounter (statuses as of 03/03/2022) [facility] History of Past illness Narrative* Problem Noted Date Resolved Date CKD (chronic kidney disease) stage 3, GFR 30-59 ml/min 12/15/2016 09/03/2021 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 06/09/2016 Contact dermatitis and other eczema, due to unspecified cause 01/06/2012 12/15/2016 Eczematous dermatitis 01/06/2012 06/09/2016 Xerosis cutis 01/06/2012 06/09/2016 Neutropenia, drug-induced 12/30/20112016 Abnormal mammogram, unspecified 09/01/2011 06/09/2016 Knee joint replacement by other means 05/09/2011 08/16/2011 Hypertension 04/04/2011 04/13/2015 Knee pain 03/30/2011 06/09/2016 documented as of this encounter (statuses as of 04/15/2022) [facility] History of Past illness Narrative* Problem Noted Date Resolved Date CKD (chronic kidney disease) stage 3, GFR 30-59 ml/min 12/15/2016 09/03/2021 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 06/09/2016 Contact dermatitis and other eczema, due to unspecified cause 01/06/2012 12/15/2016 Eczematous dermatitis 01/06/2012 06/09/2016 Xerosis cutis 01/06/2012 06/09/2016 Neutropenia, drug-induced 12/30/20112016 Abnormal mammogram, unspecified 09/01/2011 06/09/2016 Knee joint replacement by other means 05/09/2011 08/16/2011 Hypertension 04/04/2011 04/13/2015 Knee pain 03/30/2011 06/09/2016 documented as of this encounter (statuses as of 04/15/2022) [facility] History of Past illness Narrative* Problem Noted Date Resolved Date CKD (chronic kidney disease) stage 3, GFR 30-59 ml/min 12/15/2016 09/03/2021 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 06/09/2016 Contact dermatitis and other eczema, due to unspecified cause 01/06/2012 12/15/2016 Eczematous dermatitis 01/06/2012 06/09/2016 Xerosis cutis 01/06/2012 06/09/2016 Neutropenia, drug-induced 12/30/20112016 Abnormal mammogram, unspecified 09/01/2011 06/09/2016 Knee joint replacement by other means 05/09/2011 08/16/2011 Hypertension 04/04/2011 04/13/2015 Knee pain 03/30/2011 06/09/2016 documented as of this encounter (statuses as of 04/16/2022) [place] [id number] History of Past illness Narrative* Problem Noted Date Resolved Date CKD (chronic kidney disease) stage 3, GFR 30-59 ml/min 12/15/2016 09/03/2021 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 06/09/2016 Contact dermatitis and other eczema, due to unspecified cause 01/06/2012 12/15/2016 Eczematous dermatitis 01/06/2012 06/09/2016 Xerosis cutis 01/06/2012 06/09/2016 Neutropenia, drug-induced 12/30/20112016 Abnormal mammogram, unspecified 09/01/2011 06/09/2016 Knee joint replacement by other means 05/09/2011 08/16/2011 Hypertension 04/04/2011 04/13/2015 Knee pain 03/30/2011 06/09/2016 documented as of this encounter (statuses as of 06/15/2022) [facility] History of Past illness Narrative* Problem Noted Date Resolved Date CKD (chronic kidney disease) stage 3, GFR 30-59 ml/min 12/15/2016 09/03/2021 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 06/09/2016 Contact dermatitis and other eczema, due to unspecified cause 01/06/2012 12/15/2016 Eczematous dermatitis 01/06/2012 06/09/2016 Xerosis cutis 01/06/2012 06/09/2016 Neutropenia, drug-induced 12/30/20112016 Abnormal mammogram, unspecified 09/01/2011 06/09/2016 Knee joint replacement by other means 05/09/2011 08/16/2011 Hypertension 04/04/2011 04/13/2015 Knee pain 03/30/2011 06/09/2016 documented as of this encounter (statuses as of 07/18/2022) [place] [id number] History of Past illness Narrative* Problem Noted Date Resolved Date CKD (chronic kidney disease) stage 3, GFR 30-59 ml/min 12/15/2016 09/03/2021 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 06/09/2016 Contact dermatitis and other eczema, due to unspecified cause 01/06/2012 12/15/2016 Eczematous dermatitis 01/06/2012 06/09/2016 Xerosis cutis 01/06/2012 06/09/2016 Neutropenia, drug-induced 12/30/20112016 Abnormal mammogram, unspecified 09/01/2011 06/09/2016 Knee joint replacement by other means 05/09/2011 08/16/2011 Hypertension 04/04/2011 04/13/2015 Knee pain 03/30/2011 06/09/2016 documented as of this encounter (statuses as of 09/07/2022) [place] [id number] History of Past illness Narrative* Problem Noted Date Resolved Date CKD (chronic kidney disease) stage 3, GFR 30-59 ml/min 12/15/2016 09/03/2021 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 06/09/2016 Contact dermatitis and other eczema, due to unspecified cause 01/06/2012 12/15/2016 Eczematous dermatitis 01/06/2012 06/09/2016 Xerosis cutis 01/06/2012 06/09/2016 Neutropenia, drug-induced 12/30/20112016 Abnormal mammogram, unspecified 09/01/2011 06/09/2016 Knee joint replacement by other means 05/09/2011 08/16/2011 Hypertension 04/04/2011 04/13/2015 Knee pain 03/30/2011 06/09/2016 documented as of this encounter (statuses as of 09/07/2022) [address]-2017 History of Past illness Narrative* Problem Noted Date Resolved Date CKD (chronic kidney disease) stage 3, GFR 30-59 ml/min 12/15/2016 09/03/2021 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 06/09/2016 Contact dermatitis and other eczema, due to unspecified cause 01/06/2012 12/15/2016 Eczematous dermatitis 01/06/2012 06/09/2016 Xerosis cutis 01/06/2012 06/09/2016 Neutropenia, drug-induced 12/30/20112016 Abnormal mammogram, unspecified 09/01/2011 06/09/2016 Knee joint replacement by other means 05/09/2011 08/16/2011 Hypertension 04/04/2011 04/13/2015 Knee pain 03/30/2011 06/09/2016 documented as of this encounter (statuses as of 09/26/2022) [address]-2017 History of Past illness Narrative* Problem Noted Date Resolved Date CKD (chronic kidney disease) stage 3, GFR 30-59 ml/min 12/15/2016 09/03/2021 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 06/09/2016 Contact dermatitis and other eczema, due to unspecified cause 01/06/2012 12/15/2016 Eczematous dermatitis 01/06/2012 06/09/2016 Xerosis cutis 01/06/2012 06/09/2016 Neutropenia, drug-induced 12/30/20112016 Abnormal mammogram, unspecified 09/01/2011 06/09/2016 Knee joint replacement by other means 05/09/2011 08/16/2011 Hypertension 04/04/2011 04/13/2015 Knee pain 03/30/2011 06/09/2016 documented as of this encounter (statuses as of 09/28/2022) [facility] History of Past illness Narrative* Problem Noted Date Diagnosed Date Resolved Date CKD (chronic kidney disease) stage 3, GFR 30-59 ml/min 12/15/2016 09/03/2021 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 06/09/2016 Contact dermatitis and other eczema, due to unspecified cause 01/06/2012 12/15/2016 Eczematous dermatitis 01/06/20122015 Xerosis cutis 01/06/2012 06/09/2016 Neutropenia, drug-induced 12/30/2011 Abnormal mammogram, unspecified 09/01/2011 06/09/2016 Knee joint replacement by other means 05/09/2011 08/16/2011 Hypertension 04/04/2011 04/13/2015 Knee pain 03/30/2011 06/09/2016 documented as of this encounter (statuses as of 02/27/2023) [facility] History of Past illness Narrative* Problem Noted Date Diagnosed Date Resolved Date CKD (chronic kidney disease) stage 3, GFR 30-59 ml/min 12/15/2016 09/03/2021 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 06/09/2016 Contact dermatitis and other eczema, due to unspecified cause 01/06/2012 12/15/2016 Eczematous dermatitis 01/06/20122015 Xerosis cutis 01/06/2012 06/09/2016 Neutropenia, drug-induced 12/30/2011 Abnormal mammogram, unspecified 09/01/2011 06/09/2016 Knee joint replacement by other means 05/09/2011 08/16/2011 Hypertension 04/04/2011 04/13/2015 Knee pain 03/30/2011 06/09/2016 documented as of this encounter (statuses as of 04/17/2023) [facility] History of Past illness Narrative* Problem Noted Date Diagnosed Date Resolved Date CKD (chronic kidney disease) stage 3, GFR 30-59 ml/min 12/15/2016 09/03/2021 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 06/09/2016 Contact dermatitis and other eczema, due to unspecified cause 01/06/2012 12/15/2016 Eczematous dermatitis 01/06/20122015 Xerosis cutis 01/06/2012 06/09/2016 Neutropenia, drug-induced 12/30/2011 Abnormal mammogram, unspecified 09/01/2011 06/09/2016 Knee joint replacement by other means 05/09/2011 08/16/2011 Hypertension 04/04/2011 04/13/2015 Knee pain 03/30/2011 06/09/2016 documented as of this encounter (statuses as of 04/17/2023) [place] [id number] History of Past illness Narrative* Problem Noted Date Diagnosed Date Resolved Date CKD (chronic kidney disease) stage 3, GFR 30-59 ml/min 12/15/2016 09/03/2021 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 06/09/2016 Contact dermatitis and other eczema, due to unspecified cause 01/06/2012 12/15/2016 Eczematous dermatitis 01/06/20122015 Xerosis cutis 01/06/2012 06/09/2016 Neutropenia, drug-induced 12/30/2011 Abnormal mammogram, unspecified 09/01/2011 06/09/2016 Knee joint replacement by other means 05/09/2011 08/16/2011 Hypertension 04/04/2011 04/13/2015 Knee pain 03/30/2011 06/09/2016 documented as of this encounter (statuses as of 04/18/2023) [address]27-2017 History of Past illness Narrative* Problem Noted Date Diagnosed Date Resolved Date CKD (chronic kidney disease) stage 3, GFR 30-59 ml/min 12/15/2016 09/03/2021 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 06/09/2016 Contact dermatitis and other eczema, due to unspecified cause 01/06/2012 12/15/2016 Eczematous dermatitis 01/06/20122015 Xerosis cutis 01/06/2012 06/09/2016 Neutropenia, drug-induced 12/30/2011 Abnormal mammogram, unspecified 09/01/2011 06/09/2016 Knee joint replacement by other means 05/09/2011 08/16/2011 Hypertension 04/04/2011 04/13/2015 Knee pain 03/30/2011 06/09/2016 documented as of this encounter (statuses as of 04/19/2023) [facility]04-27-2017 History of Past illness Narrative* Problem Noted Date Diagnosed Date Resolved Date CKD (chronic kidney disease) stage 3, GFR 30-59 ml/min 12/15/2016 09/03/2021 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 06/09/2016 Contact dermatitis and other eczema, due to unspecified cause 01/06/2012 12/15/2016 Eczematous dermatitis 01/06/20122015 Xerosis cutis 01/06/2012 06/09/2016 Neutropenia, drug-induced 12/30/2011 Abnormal mammogram, unspecified 09/01/2011 06/09/2016 Knee joint replacement by other means 05/09/2011 08/16/2011 Hypertension 04/04/2011 04/13/2015 Knee pain 03/30/2011 06/09/2016 documented as of this encounter (statuses as of 06/26/2023) [facility]2017 History of Past illness Narrative* Problem Noted Date Diagnosed Date Resolved Date CKD (chronic kidney disease) stage 3, GFR 30-59 ml/min 12/15/2016 09/03/2021 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 06/09/2016 Contact dermatitis and other eczema, due to unspecified cause 01/06/2012 12/15/2016 Eczematous dermatitis 01/06/20122015 Xerosis cutis 01/06/2012 06/09/2016 Neutropenia, drug-induced 12/30/2011 Abnormal mammogram, unspecified 09/01/2011 06/09/2016 Knee joint replacement by other means 05/09/2011 08/16/2011 Hypertension 04/04/2011 04/13/2015 Knee pain 03/30/2011 06/09/2016 documented as of this encounter (statuses as of 07/10/2023) [facility]2017 History of Past illness Narrative* Problem Noted Date Diagnosed Date Resolved Date CKD (chronic kidney disease) stage 3, GFR 30-59 ml/min 12/15/2016 09/03/2021 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 06/09/2016 Contact dermatitis and other eczema, due to unspecified cause 01/06/2012 12/15/2016 Eczematous dermatitis 01/06/20122015 Xerosis cutis 01/06/2012 06/09/2016 Neutropenia, drug-induced 12/30/2011 Abnormal mammogram, unspecified 09/01/2011 06/09/2016 Knee joint replacement by other means 05/09/2011 08/16/2011 Hypertension 04/04/2011 04/13/2015 Knee pain 03/30/2011 06/09/2016 documented as of this encounter (statuses as of 09/29/2023) [address]27-2017 History of Past illness Narrative* Problem Noted Date Diagnosed Date Resolved Date CKD (chronic kidney disease) stage 3, GFR 30-59 ml/min 12/15/2016 09/03/2021 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 06/09/2016 Contact dermatitis and other eczema, due to unspecified cause 01/06/2012 12/15/2016 Eczematous dermatitis 01/06/20122015 Xerosis cutis 01/06/2012 06/09/2016 Neutropenia, drug-induced 12/30/2011 Abnormal mammogram, unspecified 09/01/2011 06/09/2016 Knee joint replacement by other means 05/09/2011 08/16/2011 Hypertension 04/04/2011 04/13/2015 Knee pain 03/30/2011 06/09/2016 documented as of this encounter (statuses as of 10/18/2023) [address]-2017 History of Past illness Narrative* Problem Noted Date Diagnosed Date Resolved Date CKD (chronic kidney disease) stage 3, GFR 30-59 ml/min 12/15/2016 09/03/2021 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 06/09/2016 Contact dermatitis and other eczema, due to unspecified cause 01/06/2012 12/15/2016 Eczematous dermatitis 01/06/20122015 Xerosis cutis 01/06/2012 06/09/2016 Neutropenia, drug-induced 12/30/2011 Abnormal mammogram, unspecified 09/01/2011 06/09/2016 Knee joint replacement by other means 05/09/2011 08/16/2011 Hypertension 04/04/2011 04/13/2015 Knee pain 03/30/2011 06/09/2016 documented as of this encounter (statuses as of 10/31/2023) [facility] note* Diagnosis Essential hypertension- Primary Unspecified essential hypertension Hypokalemia Hypopotassemia Hypothyroidism, unspecified type History of breast cancer Personal history of malignant neoplasm of breast [facility] Diagnosis Personal history of breast cancer Personal history of malignant neoplasm of breast Encounter for screening mammogram for high-risk patient [facility] Diagnosis PVD (posterior vitreous detachment), both eyes- Primary Vitreous degeneration Combined forms of age-related cataract of both eyes Other and combined forms of senile cataract Presbyopia Chorioretinal scar of left eye Chorioretinal scar, unspecified Blepharitis of upper and lower eyelids of both eyes, unspecified type [facility] Diagnosis Pain- Primary Generalized pain [facility] Diagnosis Hypothyroidism, acquired Unspecified hypothyroidism [facility] Diagnosis Essential hypertension- Primary Unspecified essential hypertension Thrombocytopenia (HCC) Thrombocytopenia, unspecified Hyperlipidemia, unspecified hyperlipidemia type Hypothyroidism, unspecified type History of breast cancer Personal history of malignant neoplasm of breast Screening for colon cancer Special screening for malignant neoplasms, colon [facility] Diagnosis Pseudothrombocytopenia [facility] Diagnosis Personal history of breast cancer- Primary Personal history of malignant neoplasm of breast Encounter for screening mammogram for high-risk patient [facility] Diagnosis Hyperlipidemia, unspecified hyperlipidemia type- Primary Essential hypertension Unspecified essential hypertension Hypothyroidism, unspecified type History of breast cancer Personal history of malignant neoplasm of breast [facility] Diagnosis PVD (posterior vitreous detachment), both eyes- Primary Vitreous degeneration Combined forms of age-related cataract of both eyes Other and combined forms of senile cataract Presbyopia Chorioretinal scar of left eye Chorioretinal scar, unspecified [facility] Diagnosis History of breast cancer- Primary Personal history of malignant neoplasm of breast Abnormal mammogram of left breast [facility] Diagnosis Personal history of breast cancer Personal history of malignant neoplasm of breast Encounter for screening mammogram for high-risk patient [facility]* Diagnosis Hypothyroidism, acquired Unspecified hypothyroidism documented in this encounter [facility] note* Diagnosis Personal history of breast cancer- Primary Personal history of malignant neoplasm of breast Encounter for screening mammogram for high-risk patient documented in this encounter [facility] note* Diagnosis Epidermoid cyst- Primary Sebaceous cyst documented in this encounter [facility] note* Diagnosis Epidermoid cyst- Primary Sebaceous cyst documented in this encounter [facility] for referral (narrative)* Diagnostic Procedure Only (Routine) - Closed Specialty Diagnoses / Procedures Referred By Contac t Referred To Contact [facility] Diagnoses Personal history of breast cancer Encounter for screening mammogram for high-risk patient Procedures ALO SCREENING W ILAN SCREENING DIGITAL BREAST TOMOSYNTHESIS BI SCREENING MAMMOGRAPHY BI 2-VIEW BREAST INC Aleksandar Escobar APRN.CNP [address] [place] [address] [facility] [address] [place] [address] Referral ID Status Reason Start Date Expiration Date V isits Requested Visits Authorized [id number] Closed Auto-Generate d Referral 09/28/2021 10/28/2022 1 1 [facility] for referral (narrative)* Diagnostic Procedure Only (Urgent) - Closed Specialty Diagnoses / Procedures Referred By Contac t Referred To Contact XR IMAGING Diagnoses Pain Procedures XR ANKLE GENERAL 3V AP/LAT/OBL RIGHT RADEX ANKLE COMPLETE MINIMUM 3 VIEWS Niki Costa APRN.CNP [address] [place] [address] Xr Imaging Referral ID Status Reason Start Date Expiration Date V isits Requested Visits Authorized [id number] Closed Auto-Generate d Referral 06/15/2022 07/15/2023 1 1 * Diagnostic Procedure Only (Urgent) - Closed Specialty Diagnoses / Procedures Referred By Contac t Referred To Contact XR IMAGING Diagnoses Pain Procedures XR FOOT GENERAL 3V AP/LAT/OBL RIGHT RADEX FOOT COMPLETE MINIMUM 3 VIEWS Niki Costa APRN.CNP [address] [place] [address] Xr Imaging Referral ID Status Reason Start Date Expiration Date V isits Requested Visits Authorized [id number] Closed Auto-Generate d Referral 06/15/2022 07/15/2023 1 1 [facility] for referral (narrative)* Diagnostic Procedure Only (Routine) - Authorized Specialty Diagnoses / Procedures Referred By Frances saini Referred To Contact [facility] IMAG[facility] Diagnoses Personal history of breast cancer Encounter for screening mammogram for high-risk patient Procedures ALO SCREENING W ILAN SCREENING DIGITAL BREAST TOMOSYNTHESIS BI SCREENING MAMMOGRAPHY BI 2-VIEW BREAST INC CAD Aleksandar Gan APRN.SCRAP BREAKER [address] [place] [address] [facility] [address] [place] [address] Referral ID Status Reason Start Date Expiration Date Visits Requested Visits Authorized [id number] Authorized Auto-Generat ed Referral 09/28/2022 10/28/2023 1 1 [facility] for referral (narrative)* Diagnostic Procedure Only (Routine) - Pending Review Specialty Diagnoses / Procedures Referred By Frances saini Referred To Contact [facility] IMAGING Diagnoses History of breast cancer Abnormal mammogram of left breast Procedures US BREAST LTD LEFT US BREAST UNI REAL TIME WITH IMAGE LIMITED Aleksandar Gan APRN.SCRAP BREAKER [address] [place] [address] [facility] [address] [place] [address] Referral ID Status Reason Start Date Expiration Date Visits Requested Visits Authorized [id number] Pending Review Auto-Generat ed Referral 04/17/2023 05/16/2024 1 1 * Diagnostic Procedure Only (Routine) - Authorized Specialty Diagnoses / Procedures Referred By Frances saini Referred To Contact [facility] IM[facility] Diagnoses History of breast cancer Abnormal mammogram of left breast Procedures ALO DIAGNOSTIC LEFT DIAGNOSTIC MAMMOGRAPHY [facility] Aleksandar Gan APRN.SCRAP BREAKER [address] [place] [address] [facility] [address] [place] [address] Referral ID Status Reason Start Date Expiration Date Visits Requested Visits Authorized [id number] Authorized Auto-Generat ed Referral 04/17/2023 05/16/2024 1 1 T [facility] for referral (narrative)* Diagnostic Procedure Only (Routine) - Closed Specialty Diagnoses / Procedures Referred By Frances t Referred To Contact BR IMAGING Diagnoses Personal history of breast cancer Encounter for screening mammogram for high-risk patient Procedures ALO SCREENING W ILAN SCREENING DIGITAL BREAST TOMOSYNTHESIS BI SCREENING MAMMOGRAPHY BI 2-VIEW BREAST INC [facility] Aleksandar Gan APRN.SCRAP BREAKER [address] [place] [address] [facility] [address] [place] [address] Referral ID Status Reason Start Date Expiration Date V isits Requested Visits Authorized [id number] Closed Auto-Generate d Referral 09/28/2022 10/28/2023 1 1 T [facility] for referral (narrative)* Diagnostic Procedure Only (Routine) - Authorized Specialty Diagnoses / Procedures Referred By Contac t Referred To Contact [facility] IM[facility] Diagnoses Personal history of breast cancer Encounter for screening mammogram for high-risk patient Procedures ALO SCREENING W ILAN SCREENING DIGITAL BREAST TOMOSYNTHESIS BI SCREENING MAMMOGRAPHY BI 2-VIEW BREAST INC [facility] Aleksandar Gan APRN.SCRAP BREAKER [address] [place] [address] [facility] [address] [place] [address] Referral ID Status Reason Start Date Expiration Date Visits Requested Visits Authorized [id number] Authorized Auto-Generat ed Referral 09/29/2023 10/28/2024 1 1 [facility] for visit Narrative* Diagnostic Procedure Only (Routine) - Closed Specialty Diagnoses / Procedures Referred By Frances saini Referred To Contact [facility] IM[facility] Diagnoses Personal history of breast cancer Encounter for screening mammogram for high-risk patient Procedures ALO SCREENING W ILAN SCREENING DIGITAL BREAST TOMOSYNTHESIS BI SCREENING MAMMOGRAPHY BI 2-VIEW BREAST INC Aleksandar Escobar APRN.SCRAP BREAKER [address] [place] [address] [facility] [address] [place] [address] Referral ID Status Reason Start Date Expiration Date V isits Requested Visits Authorized [id number] Closed Auto-Generate d Referral 09/28/2021 10/28/2022 1 1 [facility] for visit Narrative* Diagnostic Procedure Only (Routine) - Closed Specialty Diagnoses / Procedures Referred By Frances saini Referred To Contact [facility] Diagnoses Personal history of breast cancer Encounter for screening mammogram for high-risk patient Procedures ALO SCREENING W ILAN SCREENING DIGITAL BREAST TOMOSYNTHESIS BI SCREENING MAMMOGRAPHY BI 2-VIEW BREAST INC Aleksandar Escobar APRN.SCRAP BREAKER [address] [place] [address] [facility] [address] [place] [address] Referral ID Status Reason Start Date Expiration Date V isits Requested Visits Authorized [id number] Closed Auto-Generate d Referral 09/28/2022 10/28/2023 1 1 [facility] Summary Purpose Family History No Family History Records FoundNo Family History Records Found Advance Directives No Advanced Directives Records FoundDocuments on File Type Date 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 Advance Directive(s) 06/12/2017 1:06 PM Advance Directive(s) 04/26/2017 7:37 AM Advance Directive(s) 01/07/2016 1:48 PM Advance Directive(s) 12/25/2015 4:26 PM Medications Administered Section Active Administered Medications - up to 3 most recent administrations Medication Order MAR Action Action Date Dose Rate Site PHENYLephrine 2.5 % 1 Drop (AK-DILATE, KILO-SYNEPHRINE) 1 Drop, BOTH EYES, DIRECTED, Starting on Mon04/15/22 at 0930, Until Mon04/15/22 at 2128, Administer for dilation PROTECT FROM LIGHT Given 04/15/2022 9:30 AM EDT 1 Drop tropicamide 1 % 1 Drop (MYDRIACYL) 1 Drop, BOTH EYES, DIRECTED, Starting on Mon04/15/22 at 0930, Until Mon04/15/22 at 2128, Administer for dilation Given 04/15/2022 9:30 AM EDT 1 Drop Active Administered Medications - up to 3 most recent administrations Medication Order MAR Action Action Date Dose Rate Site PHENYLephrine 2.5 % 1 Drop (AK-DILATE, KILO-SYNEPHRINE) 1 Drop, BOTH EYES, DIRECTED, Starting on Mon04/17/23 at 0900, Until Mon04/17/23 at 2058, Administer for dilation PROTECT FROM LIGHT Given 04/17/2023 8:45 AM EDT 1 Drop proparacaine 0.5 % 1 Drop (ALCAINE) 1 Drop, BOTH EYES, DIRECTED, Starting on Mon04/17/23 at 0900, Until Mon04/17/23 at 2058, Administer for pneumo tonometry, tonopen tonometry, or pachymetry. In the event of a proparacaine shortage, administer tetracaine 0.5% ophthalmic drops 1 drop in the left eye as directed for pneumo tonometry, tonopen tonometry, or pachymetry Given 04/17/2023 8:45 AM EDT 1 Drop tropicamide 1 % 1 Drop (MYDRIACYL) 1 Drop, BOTH EYES, DIRECTED, Starting on Mon04/17/23 at 0900, Until Mon04/17/23 at 2058, Administer for dilation Given 04/17/2023 8:45 AM EDT 1 Drop Additional Source Comments INFORMATION SOURCE (unrecogn ized section and content) DATE CREATED AUTHOR AUTHOR'S MIKHAIL ATION 11/01/2023 [facility] Source Comments (unrecognize d section and content) In the event this informatio n is protected by the Federal Confidentiality of Alcohol and Drug Abuse Patient Records regulations: The Federal rules restrict any use of the information to criminally investigate or prosecute any alcohol or drug abuse patient.[facility] the event this information is protected by the Federal Confidentiality of Alcohol and Drug Abuse Patient Records regulations: The Federal rules restrict any use of the information to criminally investigate or prosecute any alcohol or drug abuse patient.[facility] the event this information is protected by the Federal Confidentiality of Alcohol and Drug Abuse Patient Records regulations: The Federal rules restrict any use of the information to criminally investigate or prosecute any alcohol or drug abuse patient.[facility] the event this information is protected by the Federal Confidentiality of Alcohol and Drug Abuse Patient Records regulations: The Federal rules restrict any use of the information to criminally investigate or prosecute any alcohol or drug abuse patient.[facility] the event this information is protected by the Federal Confidentiality of Alcohol and Drug Abuse Patient Records regulations: The Federal rules restrict any use of the information to criminally investigate or prosecute any alcohol or drug abuse patient.[facility] the event this information is protected by the Federal Confidentiality of Alcohol and Drug Abuse Patient Records regulations: The Federal rules restrict any use of the information to criminally investigate or prosecute any alcohol or drug abuse patient.[facility] the event this information is protected by the Federal Confidentiality of Alcohol and Drug Abuse Patient Records regulations: The Federal rules restrict any use of the information to criminally investigate or prosecute any alcohol or drug abuse patient.[facility] the event this information is protected by the Federal Confidentiality of Alcohol and Drug Abuse Patient Records regulations: The Federal rules restrict any use of the information to criminally investigate or prosecute any alcohol or drug abuse patient.[facility] the event this information is protected by the Federal Confidentiality of Alcohol and Drug Abuse Patient Records regulations: The Federal rules restrict any use of the information to criminally investigate or prosecute any alcohol or drug abuse patient.[facility] the event this information is protected by the Federal Confidentiality of Alcohol and Drug Abuse Patient Records regulations: The Federal rules restrict any use of the information to criminally investigate or prosecute any alcohol or drug abuse patient.[facility] the event this information is protected by the Federal Confidentiality of Alcohol and Drug Abuse Patient Records regulations: The Federal rules restrict any use of the information to criminally investigate or prosecute any alcohol or drug abuse patient.[facility] the event this information is protected by the Federal Confidentiality of Alcohol and Drug Abuse Patient Records regulations: The Federal rules restrict any use of the information to criminally investigate or prosecute any alcohol or drug abuse patient.[facility] the event this information is protected by the Federal Confidentiality of Alcohol and Drug Abuse Patient Records regulations: The Federal rules restrict any use of the information to criminally investigate or prosecute any alcohol or drug abuse patient.[facility] the event this information is protected by the Federal Confidentiality of Alcohol and Drug Abuse Patient Records regulations: The Federal rules restrict any use of the information to criminally investigate or prosecute any alcohol or drug abuse patient.[facility] the event this information is protected by the Federal Confidentiality of Alcohol and Drug Abuse Patient Records regulations: The Federal rules restrict any use of the information to criminally investigate or prosecute any alcohol or drug abuse patient.[facility] the event this information is protected by the Federal Confidentiality of Alcohol and Drug Abuse Patient Records regulations: The Federal rules restrict any use of the information to criminally investigate or prosecute any alcohol or drug abuse patient.[facility] the event this information is protected by the Federal Confidentiality of Alcohol and Drug Abuse Patient Records regulations: The Federal rules restrict any use of the information to criminally investigate or prosecute any alcohol or drug abuse patient.[facility] the event this information is protected by the Federal Confidentiality of Alcohol and Drug Abuse Patient Records regulations: The Federal rules restrict any use of the information to criminally investigate or prosecute any alcohol or drug abuse patient.[facility] the event this information is protected by the Federal Confidentiality of Alcohol and Drug Abuse Patient Records regulations: The Federal rules restrict any use of the information to criminally investigate or prosecute any alcohol or drug abuse patient.[facility] the event this information is protected by the Federal Confidentiality of Alcohol and Drug Abuse Patient Records regulations: The Federal rules restrict any use of the information to criminally investigate or prosecute any alcohol or drug abuse patient.[facility] Reason for Visit (unrecogniz ed section and content) Reason Comments Floaters Both Eyes Reason Comments Pain (foot) Right foot, started monday Reason Onset Date Comments Refill Request 07/18/2022 Reason Comments Results Reason Comments Established Patient Reason Comments Comprehensive Eye Exam Reason Comments Mammogram Result Call Back Reason Onset Date Comments Refill Request 07/10/2023 Reason Comments Follow Up Care Teams (unrecognized sec tion and content) 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 Automatic Relationship Specialty Start Date End Date Evy Rodriguez MD [address] [facility] [place] [address] PCP - General Family Practice 05/27/15 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 Automatic Relationship Specialty Start Date End Date Evy Rodriguez MD [address] [facility] [place] [address] PCP - General Family Practice 05/27/15 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 Automatic Relationship Specialty Start Date End Date Evy Rodriguez MD [address] [facility] [place] [address] PCP - General Family Practice 05/27/15 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 Automatic Relationship Specialty Start Date End Date Evy Rodriguez MD [address] [facility] [place] [address] PCP - General Family Medicine 05/27/15 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 Automatic Relationship Specialty Start Date End Date Evy Rodriguez MD [address] [facility] [place] [address] PCP - General Family Medicine 05/27/15 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 Automatic Relationship Specialty Start Date End Date Evy Rodriguez MD [address] [facility] [place] [address] PCP - General Family Medicine 05/27/15 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 Automatic Relationship Specialty Start Date End Date Evy Rodriguez MD [address] [facility] [place] [address] PCP - General Family Medicine 05/27/15 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 Automatic Relationship Specialty Start Date End Date Evy Rodriguez MD [address] [place] [address] PCP - General Family Medicine 05/27/15 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 Automatic Relationship Specialty Start Date End Date Evy Rodriguez MD [address] [place] [address] PCP - General Family Medicine 05/27/15 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 Automatic Relationship Specialty Start Date End Date Evy Rodriguez MD [address] [place] [address] PCP - General Family Medicine 05/27/15 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 Automatic Relationship Specialty Start Date End Date Evy Rodriguez MD [address] [place] [address] PCP - General Family Medicine 05/27/15 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 Automatic Relationship Specialty Start Date End Date Evy Rodriguez MD [address] [place] [address] PCP - General Family Medicine 05/27/15 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 Automatic Relationship Specialty Start Date End Date Evy Rodriguez MD [address] [place] [address] PCP - General Family Medicine 05/27/15 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 Automatic Relationship Specialty Start Date End Date Evy Rodriguez MD [address] [place] [address] PCP - General Family Medicine 05/27/15 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 This clinical summary was aggregated from multiple sources. Caution should be exercised in using it in the provision of clinical care. This summary normalizes information from multiple sources, and as a consequence, information in this document may materially change the coding, format and clinical context of patient data. In addition, data may be omitted in some cases. CLINICAL DECISIONS SHOULD BE BASED ON THE PRIMARY CLINICAL RECORDS. [facility] [facility]. provides no warranty or guarantee of the accuracy or completeness of information in this document.
== END 2023-11-02 12:41 | disposition home or self-care (01) ==
PROVIDERS: Emergency Provider Emergency Medicine; PCP Family Medicine; Visit Provider Emergency Medicine
DX: I80.01 Phlebitis and thrombophlebitis of superficial vessels of right lower extremity (principal)
CPT/HCPCS: 93971; 99282

== ENCOUNTER 2024-11-21 16:29 | Emergency (ER) | payer MEDICARE, MEDICAID, SELFPAY ==
[2024-11-21 16:32] VITALS: BP 150/137; PULSE 86; RESP 16; TEMP 36.8; O2SAT 97; BMI 23.8
--- NOTE | 2024-11-21 17:07 | CT_ITS ---
PROCEDURE: SPINE CERVICAL WITHOUT CONTRAS 11/21/2024 REASON FOR EXAM: FALL TECHNIQUE: Cervical spine CT without contrast. Coronal and Sagittal reconstruction series were provided. One or more dose reduction techniques were used (e.g., Automated exposure control, adjustment of the mA and/or kV according to patient size, use of iterative reconstruction technique RADIATION DOSE SUMMARY: CTDlvol: 16.30 mGy DLP: 1136.37 mGycm COMPARISON: None available FINDINGS: No fracture or malalignment. No prevertebral soft tissue swelling. Degenerative changes C1-2 and facet degenerative changes noted. Spondylosis/discogenic change C6-7. Visualized apices appear clear. CT/Spine Cervical without Contras IMPRESSION: No fracture or malalignment. Spondylosis/discogenic change C6-7. Reading Location: [id number]
--- NOTE | 2024-11-21 17:07 | CT_ITS ---
EXAM: BRAIN/HEAD WITHOUT CONTRAST 11/21/2024 CLINICAL HISTORY: Fall, head lack COMPARISON: None available TECHNIQUE: Noncontrast head CT with coronal and sagittal reformatted images FINDINGS: No intracranial hemorrhage, mass effect or calvarial fracture. The ventricles are within limits and midline. CSF spaces appear within limits. The visualized paranasal sinuses, mastoids and orbits appear within limits. CT/Brain/Head without Contrast IMPRESSION: No intracranial hemorrhage, mass effect or calvarial fracture. Reading Location: [id number]
--- NOTE | 2024-11-21 17:08 | EX.ED.DYSGE1 ---
HPI History of Present Illness Chief Complaint: Fall Narrative Narrative: Patient is a 79-year-old female with past medical history hypertension, hypothyroidism who presented to the emergency department chief complaint of slipping on mud falling hitting the back of her head. According to the patient's family member at bedside they note that she had a hair clip in and they feel that when she landed on her head this punctured her head causing laceration and bleeding. They state that she did not pass out. Patient is complaining of some shoulder discomfort as she states that she tried to catch herself from falling. Patient states that she is unsure of when her last tetanus shot was. Patient states that her cat scratched her right hand couple days ago and she has been putting some cream on it but is requesting some antibiotics for her cat scratch/bite. Patient states that she did not have any chest pain shortness of breath lightheadedness or dizziness prior to the fall she simply slipped on the mud. PFSH PFS Home Medications ?Medication ?Instructions ?Recorded ?Last Taken ?Type ferrous fumarate 55 mg (18 mg 65 mg PO DAILY 09/24/13 09/24/13 08:00 History iron) tablet,extended release (iron ER) multivitamin,[id number] 27 1 tab PO DAILY 09/24/13 09/24/13 History mg-0.4 mg tablet (Therems-M) potassium chloride 20 mEq 10 meq PO DAILY 09/24/13 09/24/13 08:00 History tablet,extended release(part/cryst) (Klor-Con M) amlodipine 2.5 mg tablet 2.5 mg PO DAILY 02/15/16 Unknown History anastrozole 1 mg tablet 1 mg PO DAILY 02/15/16 Unknown History amoxicillin 875 mg-potassium 1 tab PO BID 7 days #14 tabs 11/21/24 Unknown Rx clavulanate 125 mg tablet levothyroxine 75 mcg tablet 75 mcg PO DAILY disorder of 11/21/24 Unknown History thyroid gland Allergy/AdvReac Type Severity Reaction Status Date / Time doxycycline Allergy Swelling Verified 11/02/23 11:31 Social History Smoking Status: Never smoker ROS ROS ED ROS Narrative Constitutional: Denies headache, fever, chills, lightness, dizziness Cardiovascular: Denies chest pain or palpitations Respiratory: Denies coughing wheezing shortness of breath Abdomen: Denies abdominal pain nausea vomit diarrhea : Denies urinary symptoms Neurological: Denies numbness, weakness, tingling Musculoskeletal: Complains of some shoulder discomfort from trying to catch herself as noted above Skin: Complains of cut to the back head as noted above EXAM Physical Exam Narrative Exam Narrative: General: Patient lying in bed rest complete did not appear to be acute distress Head: Patient has 2 small lacerations to the back of the head each measuring approximately 0.5 to 1 cm in nature no active bleeding noted Eyes: PERRL bilateral, EOMI bilateral, no conjunctival injection noted Neck: Soft, supple, trachea midline, nontender to palpation midline cervical spine patient has full range of motion of her neck without any pain Cardiovascular: Regular rate and rhythm no murmurs gallops rubs noted Respiratory: Clear to auscultation bilaterally Abdomen: Soft, nondistended, nontender to palpation Musculoskeletal: All bony prominences palpated and joints taken through full range of motion no pain elicited no tenderness palpation midline of the thoracic lumbar spine Extremities: +5/5 strength noted in the bilateral upper and lower extremities, no pedal edema exam, patient is able to give me okay sign thumbs up and oppose her thumb to her pinky is bilaterally thigh difficulty, radial pulses +2/4 in the bilateral extremities Neurological: Patient following commands knew that she was at [facility] years 2024 Skin: See head, patient has a scratch noted to the dorsal aspect of her right hand with a very small amount of surrounding redness no purulent discharge noted Const Vital Signs: 11/21/24 16:32 11/21/24 16:32 11/21/24 18:30 Temperature 98.2 F Temperature Source Oral Pulse Rate 86 82 Respiratory Rate 16 14 Respiratory Effort Normal Non-Labored Respiratory Depth Normal Respiratory Pattern Normal Blood Pressure 150/137 H 133/101 H Blood Pressure Mean 141 111 Pulse Ox 97 97 Oxygen Delivery Method Room Air Room Air Room Air MDM MDM MDM Narrative Medical decision making narrative: Patient is a 79-year-old female who presented to the emerged department after slipping on mud falling hitting the back of her head causing 2 small lacerations from her hair clip. On the differential diagnose includes but not limited to mechanical fall, head laceration, intracranial hemorrhage, cervical spine fracture. Once workup is obtained reviewed she will be reevaluated. Patient's tetanus shot will be updated today. Patient's CT head reviewed showed no acute intracranial hemorrhage mass effect or calvarial fracture. Patient CT cervical spine reviewed showed no fracture or malalignment spondylosis and discogenic change at C6-C7. Patient had a laceration repaired she tolerated this well without any difficulty/complications. Patient was advised to have her sutures removed in approximately 5 to 7 days. She was requesting a prescription for her cat scratch/bite on her right hand. Once again there is no purulent drainage noted from the site with only minimal surrounding erythema she will be given her first dose of Augmentin here in the emergency department. She was advised to follow-up with her primary care physician and return with worsening symptoms family members agreeable with this plan at bedside all question concerns answered she is discharged home in stable condition. Radiography Diagnostic Testing: Clinical Impression(s) from Imaging Studies Brain CT 11/21/24 17:07 IMPRESSION: No intracranial hemorrhage, mass effect or calvarial fracture. Reading Location: [facility] Cervical Spine CT 11/21/24 17:07 IMPRESSION: No fracture or malalignment. Spondylosis/discogenic change C6-7. Reading Location: [facility] Discharge Plan Triage Chief Complaint: Fall Other Complaint: Head Injury ED Provider: Bowen Lynch Dx/Rx/DC Orders Clinical Impression: Fall, Cat scratch Prescriptions: New amoxicillin-pot clavulanate 875-125 mg tablet 1 tab PO BID 7 Days Qty: 14 0RF No Action potassium chloride [Klor-Con M20] 20 MEQ tablet 10 meq PO DAILY Patient Comments: supplement ferrous fumarate [iron] 55 MG tablet extended release 65 mg PO DAILY Patient Comments: iron supplement multivitamin,[id number] [Therems-M] 1 TABLET tablet 1 tab PO DAILY Patient Comments: supplement anastrozole 1 MG tablet 1 mg PO DAILY amlodipine 2.5 MG tablet 2.5 mg PO DAILY levothyroxine 75 mcg tablet 75 mcg PO DAILY Primary Care Provider: Paulie Rodriguez Referrals: Paulie Rodriguez MD [Primary Care Provider] - Activity Restrictions/Additional Instructions: Follow-up your primary care physician in approximately 5 to 7 days to have your sutures removed. Take the prescription as prescribed for your cat scratch/bite. While on antibiotics if you have purulent drainage or worsening redness you need to return to the emergency department at that point time you may need IV antibiotics. Your tetanus shot was updated today. No soaking of the sutures. Print Language: Sami Disposition Disposition: Home, Self Care
[2024-11-21] MEDS: Diphth,Pertuss(Acell),Tet Vac 0.5 ML Vial IM (17:47)
[2024-11-21] MEDS: Lidocaine 1% (20 ml mdv) 20 ML Vial 10 ML INFILT (17:48)
[2024-11-21 18:30] VITALS: BP 133/101; PULSE 82; RESP 14; O2SAT 97
[2024-11-21] MEDS: Amox/Clavulanate 875 MG Tablet PO (19:47)
[2024-11-21 19:58] VITALS: BP 134/99; PULSE 84; RESP 16; TEMP 36.6; O2SAT 99
== END 2024-11-21 19:58 | disposition home or self-care (01) ==
PROVIDERS: Emergency Provider Emergency Medicine; PCP Family Medicine; Referring Provider Emergency Medicine; Visit Provider Emergency Medicine
DX: S01.01XA Laceration without foreign body of scalp, initial encounter (principal); W01.0XXA Fall on same level from slipping, tripping and stumbling without subsequent striking against object, initial encounter; S60.511A Abrasion of right hand, initial encounter; W55.03XA Scratched by cat, initial encounter; I10 Essential (primary) hypertension; Z79.899 Other long term (current) drug therapy; Z23 Encounter for immunization
CPT/HCPCS: 12001; 70450; 72125; 90715; 99284